=== PATIENT | male | born 1965 | race Caucasian/White ===

== ENCOUNTER 2017-09-20 09:22 | Emergency (ER) | payer MEDICARE ==
[2016-03-22 11:27] VITALS: Ht 182.9 cm; Wt 65.8 kg
[~2017-09-20] VITALS: Ht 182.9 cm; Wt 65.8 kg
[~2017-09-20 09:22] MED LIST: AMLO-96 PO; ATEN-1 PO; CEP500 PO; CIPR-344 PO; CLIN300C99 PO; FLUT16SP20 NS; GABA-549 PO; HYDR-3083 PO; HYDR-317 PO; HYDR-3250 GT; HYDR-4309 PO; IBU800 PO; KET10 PO; LEVO-85 PO; LOR5 PO; LOR5/325 PO; METR-1 PO; OMEP-125 PO; ONDA4TAB PO; OXYC-865 PO; OXYC-870 PO; PEN250 PO; PER PO; PROM-110 PO; PROM25SU8 PR; RANI-315 PO; SUCR1TAB85 PO; ZOLP-350 PO; [UNRECOGNIZED DRUG - CODE] PO
--- NOTE | 2017-09-20 09:42 | ER Report ---
History and Physical Time Seen By MD: 09:39 Hx. of Stated Complaint: N/V/D, ABDOMINAL PAIN HPI/ROS CHIEF COMPLAINT: Nausea vomiting and abdominal pain HISTORY OF PRESENT ILLNESS: Patient is a 52-year-old male who presents emergency Department with generalized abdominal pain that's been going on for approximately 2 days. He reports a nonbloody nonbilious emesis. I reports a few episodes of watery diarrhea. The abdominal pain is generalized and states this is the worst pain he's ever experienced. Patient is had multiple ED visits in the past for similar presentation usually with a completely negative workup including blood work and CT scans. It is noted the patient is on the narcotic watch list. Patient states he's had chills and subjective fevers. Last meal was chicken rice soup last evening. Patient denies any abdominal surgeries in the past. Patient does have a history of alcohol abuse in the past with pancreatitis. Patient denies any recent alcohol ingestion. REVIEW OF SYSTEMS: Constitutional: Subjective fevers and chills Eyes: No discharge. ENT: No sore throat. Cardiovascular: No chest pain, no palpitations. Respiratory: No cough, no shortness of breath. Gastrointestinal: Diffuse abdominal pain associated with nausea vomiting and diarrhea Genitourinary: No hematuria. Musculoskeletal: No back pain. Skin: No rashes. Neurological: No headache. Allergies: Coded Allergies: ketorolac (Verified Allergy, Mild, NAUSEA/VOMITING, 09/20/17) gabapentin (Verified Allergy, Unknown, 09/20/17) naproxen (Verified Allergy, Unknown, 09/20/17) meperidine (Verified Adverse Reaction, Mild, VOMITING, 09/20/17) Home Meds Active Scripts Promethazine HCl (Phenergan) 25 Mg Supp.rect, 1 SUPP.RECT MA Q6H for Nausea, # 20 SUPP.RECT 0 Refills Prov:LIONEL PARISH MD 09/20/17 Dicyclomine Hcl (DICYCLOMINE HCL) 20 Mg Tablet, 20 MG PO QID for abdominal cramping, #20 TAB 0 Refills Prov:LIONEL PARISH MD 09/20/17 Discontinued Scripts Promethazine HCl (Phenergan) 25 Mg Supp.rect, 25 MG MA Q6H Y for NAUSEA/VOMITING , #12 SUPP.RECT Prov:LATA VAZQUEZ [employer]ESSIONAL[employer] 06/27/17 Hydrocodone Bit/Acetaminophen (NORCO 5-325 TABLET) 1 Each Tablet, 1 EACH PO 2- 4XD, #10 TAB Prov:BUD PRETTY MD 10/18/16 Ondansetron (ZOFRAN ODT) 4 Mg Tab.rapdis, 4 MG PO Q6H Y for NAUSEA, #20 TAB TAKE 1 TABLET BY MOUTH EVERY 12 HOURS Prov:BUD PRETTY MD 10/18/16 Past Medical/Surgical History Past Medical/Surgical History Patient has a past medical and surgical history of brain tumor, grand mal seizures, hypertension, COPD, pancreatitis, fractures, back pain, fibromyalgia, 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 Patient has had multiple ED visits for similar complaints of generalized abdominal pain along with nausea and vomiting and multiple CT scans which are either normal or showed only mild colitis. Hx Smoking: Yes (1/2ppd) Smoking Status: Current: Every Day Smoker Exposure to Second Hand Smoke?: No Hx Substance Use Disorder: Yes (POT) Hx Alcohol Use: No (quit 5 yrs ago) Constitutional Vital Sign - Last 24 Hours 09/20/17 09/20/17 09/20/17 09/20/17 09:27 09:27 09:30 09:52 Temp 98.3 Pulse 53 66 Resp 18 B/P (MAP) 185/123 (143) 185/123 181/114 (136) Pulse Ox 97 99 O2 Delivery Room Air 09/20/17 09/20/17 09/20/17 09/20/17 10:00 10:22 10:30 10:52 Pulse 55 59 B/P (MAP) 167/104 (125) 194/125 (148) Pulse Ox 99 93 09/20/17 09/20/17 09/20/17 09/20/17 11:00 11:30 12:00 12:18 Pulse 66 69 64 B/P (MAP) 192/130 (150) 178/117 (137) 184/121 (142) 194/168 (177) Pulse Ox 92 91 92 O2 Delivery Room Air Physical Exam General Appearance: [The patient is alert, has no immediate need for airway protection and no signs of toxicity.] [ ] [Eyes:] [Pupils equal and round no pallor or injection.] [ENT, Mouth:] [Mucous membranes are moist.] Respiratory: [There are no retractions, lungs are clear to auscultation.] Cardiovascular: [Regular rate and rhythm.] [ ] Gastrointestinal: [Abdomen is soft and non tender, no masses, bowel sounds normal.] [Neurological:] [ ] [Skin:] [Warm and dry, no rashes.] [Musculoskeletal:] [Neck is supple non tender.] [Extremities are nontender, nonswollen and have full range of motion.] [ ] [DIFFERENTIAL DIAGNOSIS: After history and physical exam differential diagnosis was considered for] [ ] Medical Decision Making Data Points Result Diagram: 09/20/17 1005 09/20/17 1005 Laboratory Hematology Test 09/20/17 10:05 09/20/17 10:26 Red Blood Count 5.34 M/uL (4.00-5.60) Mean Corpuscular Volume 90.9 fL (80.0-96.0) Mean Corpuscular Hemoglobin 31.3 pg (26.0-33.0) Mean Corpuscular Hemoglobin Concent 34.5 g/dL (32.0-36.0) Red Cell Distribution Width 13.5 % (11.5-14.5) Mean Platelet Volume 9.2 fL (7.2-11.1) Neutrophils (%) (Auto) 81.8 % (39.4-72.5) Lymphocytes (%) (Auto) 13.8 % (17.6-49.6) Monocytes (%) (Auto) 3.9 % (4.1-12.4) Eosinophils (%) (Auto) 0.0 % (0.4-6.7) Basophils (%) (Auto) 0.5 % (0.3-1.4) Nucleated RBC Relative Count (auto) 0.0 /100WBC Neutrophils # (Auto) 8.3 K/uL (2.0-7.4) Lymphocytes # (Auto) 1.4 K/uL (1.3-3.6) Monocytes # (Auto) 0.4 K/uL (0.3-1.0) Eosinophils # (Auto) 0.0 K/uL (0.0-0.5) Basophils # (Auto) 0.1 K/uL (0.0-0.1) Nucleated RBC Absolute Count (auto) 0.00 K/uL Sodium Level 139 mmol/L (137-145) Potassium Level 3.5 mmol/L (3.5-5.0) Chloride Level 105 mmol/L (98-107) Carbon Dioxide Level 23 mmol/L (22-30) Blood Urea Nitrogen 8 mg/dl (9-21) Creatinine 0.60 mg/dl (0.66-1.25) Glomerular Filtration Rate Calc > 60.0 Random Glucose 128 mg/dl (75-110) Calcium Level 9.6 mg/dl (8.4-10.2) Total Bilirubin 0.8 mg/dl (0.2-1.3) Aspartate Amino Transf (AST/SGOT) 20 U/L (0-35) Alanine Aminotransferase (ALT/SGPT) 23 U/L (0-56) Alkaline Phosphatase 107 U/L (0-126) Total Protein 7.8 gm/dl (6.3-8.2) Albumin 4.5 g/dl (3.5-5.0) Amylase Level 56 U/L (0-110) Lipase 20 U/L (23-300) Helicobacter pylori IgG Antibody Negative (NEGATIVE) Urine Color Yellow Urine Clarity Clear Urine pH 8.0 pH (4.8-9.5) Urine Specific [place] 1.018 Urine Protein 30 mg/dL (NEGATIVE) Urine Glucose (UA) Negative mg/dL (NEGATIVE) Urine Ketones 20 mg/dL (NEGATIVE) Urine Blood Negative (NEGATIVE) Urine Nitrite Negative (NEGATIVE) Urine Bilirubin Negative (NEGATIVE) Urine Urobilinogen Negative mg/dL (0.2-1.9) Urine Leukocyte Esterase Negative (NEGATIVE) Urine RBC None /HPF (0-2/HPF) Urine WBC 1 /HPF (0-5/HPF) Urine Squamous Epithelial Cells None /LPF (</=FEW) Urine Bacteria Negative /HPF (NONE-FEW) Urine Mucus Few /HPF (NONE-FEW) Chemistry Test 09/20/17 10:05 09/20/17 10:26 White Blood Count 10.2 k/uL (4.5-11.0) Red Blood Count 5.34 M/uL (4.00-5.60) Hemoglobin 16.7 g/dL (14.0-18.0) Hematocrit 48.6 % (42.0-52.0) Mean Corpuscular Volume 90.9 fL (80.0-96.0) Mean Corpuscular Hemoglobin 31.3 pg (26.0-33.0) Mean Corpuscular Hemoglobin Concent 34.5 g/dL (32.0-36.0) Red Cell Distribution Width 13.5 % (11.5-14.5) Platelet Count 277 K/uL (150-450) Mean Platelet Volume 9.2 fL (7.2-11.1) Neutrophils (%) (Auto) 81.8 % (39.4-72.5) Lymphocytes (%) (Auto) 13.8 % (17.6-49.6) Monocytes (%) (Auto) 3.9 % (4.1-12.4) Eosinophils (%) (Auto) 0.0 % (0.4-6.7) Basophils (%) (Auto) 0.5 % (0.3-1.4) Nucleated RBC Relative Count (auto) 0.0 /100WBC Neutrophils # (Auto) 8.3 K/uL (2.0-7.4) Lymphocytes # (Auto) 1.4 K/uL (1.3-3.6) Monocytes # (Auto) 0.4 K/uL (0.3-1.0) Eosinophils # (Auto) 0.0 K/uL (0.0-0.5) Basophils # (Auto) 0.1 K/uL (0.0-0.1) Nucleated RBC Absolute Count (auto) 0.00 K/uL Glomerular Filtration Rate Calc > 60.0 Calcium Level 9.6 mg/dl (8.4-10.2) Total Bilirubin 0.8 mg/dl (0.2-1.3) Aspartate Amino Transf (AST/SGOT) 20 U/L (0-35) Alanine Aminotransferase (ALT/SGPT) 23 U/L (0-56) Alkaline Phosphatase 107 U/L (0-126) Total Protein 7.8 gm/dl (6.3-8.2) Albumin 4.5 g/dl (3.5-5.0) Amylase Level 56 U/L (0-110) Lipase 20 U/L (23-300) Helicobacter pylori IgG Antibody Negative (NEGATIVE) Urine Color Yellow Urine Clarity Clear Urine pH 8.0 pH (4.8-9.5) Urine Specific [place] 1.018 Urine Protein 30 mg/dL (NEGATIVE) Urine Glucose (UA) Negative mg/dL (NEGATIVE) Urine Ketones 20 mg/dL (NEGATIVE) Urine Blood Negative (NEGATIVE) Urine Nitrite Negative (NEGATIVE) Urine Bilirubin Negative (NEGATIVE) Urine Urobilinogen Negative mg/dL (0.2-1.9) Urine Leukocyte Esterase Negative (NEGATIVE) Urine RBC None /HPF (0-2/HPF) Urine WBC 1 /HPF (0-5/HPF) Urine Squamous Epithelial Cells None /LPF (</=FEW) Urine Bacteria Negative /HPF (NONE-FEW) Urine Mucus Few /HPF (NONE-FEW) Urinalysis Test 09/20/17 10:26 Urine Color Yellow Urine Clarity Clear Urine pH 8.0 pH (4.8-9.5) Urine Specific [place] 1.018 Urine Protein 30 mg/dL (NEGATIVE) Urine Glucose (UA) Negative mg/dL (NEGATIVE) Urine Ketones 20 mg/dL (NEGATIVE) Urine Blood Negative (NEGATIVE) Urine Nitrite Negative (NEGATIVE) Urine Bilirubin Negative (NEGATIVE) Urine Urobilinogen Negative mg/dL (0.2-1.9) Urine Leukocyte Esterase Negative (NEGATIVE) Urine RBC None /HPF (0-2/HPF) Urine WBC 1 /HPF (0-5/HPF) Urine Squamous Epithelial Cells None /LPF (</=FEW) Urine Bacteria Negative /HPF (NONE-FEW) Urine Mucus Few /HPF (NONE-FEW) EKG/Imaging Imaging V: [id number] EXAM DATE: ORDERING PHYSICIAN: LIONEL PARISH TECHNOLOGIST: Location: [facility] - [place], [place] Patient: Edvin Soliman : 1965 Visit/Account:[id number] Date of Sevice: 09/20/2017 EXAMINATION: CT Abdomen and Pelvis With Contrast 09/20/2017 9:55 AM HISTORY: pain. Vomiting. Diarrhea. TECHNIQUE: Spiral scan was through the abdomen and pelvis during injection of nonionic iodinated intravenous contrast. Contrast: 75 mL of IV Isovue 370. One of the following dose optimization techniques was utilized in the performance of this exam: Automated exposure control; adjustment of the mA and/ or kV according to the patient's size; or use of an iterative reconstruction technique. Specific details can be referenced in the facility's radiology CT exam operational policy. COMPARISON STUDIES: 07/08/2016. FINDINGS: Liver / biliary: Periportal edema. Minimal fluid adjacent to the gallbladder although the gallbladder is not distended. No visible cholelithiasis. Pancreas: negative Spleen: negative Adrenal glands: negative Kidneys / retroperitoneum: negative Pelvic structures: negative Bowel / peritoneum / mesenteries: Probably thickened appearance of the ascending transverse and descending colonic wall. Mild free fluid in the pelvis. Normal appendix. Vessels: Mild atherosclerosis. Musculoskeletal / Body wall: Subtle haziness or edema of abdominal wall fat. Lymph node assessment: negative Lower chest: Trace pericardial fluid. IMPRESSION: 1. Mildly thickened appearance of the colon suggesting a nonspecific colitis pattern. 2. Periportal edema, small amount of free fluid in the abdomen, and haziness of the abdominal wall fat and trace pericardial fluid. The pattern is frequently seen with third spacing simply secondary to fluid administration in the ER. Report Dictated By: Ck Sousa MD at 09/20/2017 11:37 AM Report E-Signed By: Ck Sousa MD at 09/20/2017 11:51 AM WSN:[facility] ED Course/Re-evaluation Clinical Indication for ER IV: Hydration, IV Access ED Course 09/20/2017 10:02:56 am patient with 2-3 days of nausea vomiting abdominal pain. Patient does have a history of prior pancreatitis. Patient is also had multiple workups for abdominal pain without significant findings. Patient states he has not yet seen a surgeon or GI doctor for a colonoscopy. Plan at this time will be medical workup including abdominal CT specifically looking for pancreatitis. We'll also administer Zofran for nausea IV fluids and will give iv dilaudid, 1 mg mixed in 250 cc NS and run over 1 hour Re-evaluation 09/20/2017 11:37:37 am Patient feeling better after 1 mg of IV Dilaudid still reporting some nausea despite for Zofran. We'll give 25 mg of Phenergan IV. Decision to Disposition Date: Sep 20, 2017 Decision to Disposition Time: 12:11 Depart Departure Latest Vital Signs Vital Signs Date Time Temp Pulse Resp B/P (MAP) Pulse Ox O2 Delivery O2 Flow Rate FiO2 09/20/17 12:18 64 194/168 (177) 92 Room Air 09/20/17 09:27 98.3 18 Impression: Primary Impression: Colitis Condition: Improved Disposition: HOME OR SELF-CARE Referrals: TREE WISEMAN MD Call for an appointment to evaluate possible causes of recurrent abdominal pain. New Scripts Promethazine HCl (Phenergan) 25 Mg Supp.rect 1 SUPP.RECT MA Q6H for Nausea, #20 SUPP.RECT 0 Refills Prov: LIONEL PARISH MD 09/20/17 Dicyclomine Hcl (DICYCLOMINE HCL) 20 Mg Tablet 20 MG PO QID for abdominal cramping, #20 TAB 0 Refills Prov: LIONEL PARISH MD 09/20/17 Patient Instructions: Colitis (ED) Additional Instructions: Recommend follow-up with general surgery for colonoscopy to further investigate cause of recurrent abdominal pain. LIONEL PARISH MD Sep 20, 2017 09:42
[2017-09-20] MEDS ORDERED: LR(*) 1000 ML BAG 1,000 ML IV ONE (09:50)
[2017-09-20] MEDS ORDERED: ONDANSETRON 4 MG/2 ML VIAL IVP ONE (09:50)
[2017-09-20] MEDS ORDERED: HYDROmorphone(ER ONLY) 1 MG/ML IVP ONE (09:55)
[2017-09-20] MEDS ORDERED: IOPAMIDOL 76% 75 ML INFUS BTL 75 ML ONE (10:10)
[2017-09-20] MEDS ORDERED: NS(*) 0.9% 250 ML BAG 250 ML ONE (10:10)
[2017-09-20] MEDS ORDERED: NS 0.9% 20 ML SDV 60 ML ONE (10:11)
[2017-09-20 10:20] LABS: PLATELET COUNT, AUTOMATED 277 K/uL (150-450)
[2017-09-20] MEDS ORDERED: PROMETHAZINE 25 MG/ML 1 ML AMP IVP ONE (11:40)
--- NOTE | 2017-09-20 11:56 | RADIOLOGY IMAGING REPORT ---
FACILITY: [facility] PATIENT NAME: Edvin Soliman : 1965 MR: [id number] V: [id number] EXAM DATE: ORDERING PHYSICIAN: LIONEL PARISH TECHNOLOGIST: Location: [facility] Patient: Edvin Soliman : 1965 Visit/Account:[id number] Date of Sevice: 09/20/2017 EXAMINATION: CT Abdomen and Pelvis With Contrast 09/20/2017 9:55 AM HISTORY: pain. Vomiting. Diarrhea. TECHNIQUE: Spiral scan was through the abdomen and pelvis during injection of nonionic iodinated in travenous contrast. Contrast: 75 mL of IV Isovue 370. One of the following dose optimization techniques was utilized in the performance of this exam: Autom ated exposure control; adjustment of the mA and/or kV according to the patient's size; or use of an i terative reconstruction technique. Specific details can be referenced in the facility's radiology C T exam operational policy. COMPARISON STUDIES: 07/08/2016. FINDINGS: Liver / biliary: Periportal edema. Minimal fluid adjacent to the gallbladder although the gallbladde r is not distended. No visible cholelithiasis. Pancreas: negative Spleen: negative Adrenal glands: negative Kidneys / retroperitoneum: negative Pelvic structures: negative Bowel / peritoneum / mesenteries: Probably thickened appearance of the ascending transverse and desce nding colonic wall. Mild free fluid in the pelvis. Normal appendix. Vessels: Mild atherosclerosis. Musculoskeletal / Body wall: Subtle haziness or edema of abdominal wall fat. Lymph node assessment: negative Lower chest: Trace pericardial fluid. IMPRESSION: 1. Mildly thickened appearance of the colon suggesting a nonspecific colitis pattern. 2. Periportal edema, small amount of free fluid in the abdomen, and haziness of the abdominal wall f at and trace pericardial fluid. The pattern is frequently seen with third spacing simply secondary t o fluid administration in the ER. Report Dictated By: Ck Sousa MD at 09/20/2017 11:37 AM Report E-Signed By: Ck Sousa MD at 09/20/2017 11:51 AM WSN:[facility]
[2017-09-20] MEDS ORDERED: DICY20TA70 PO (12:14)
[2017-09-20] MEDS ORDERED: PROM25SU8 PR (12:14)
[2017-09-20 12:18] VITALS: BP 194/168
== END 2017-09-20 12:20 | disposition home or self-care (01) ==
LOC: ER 09:22
DX: K52.9 Noninfective gastroenteritis and colitis, unspecified (principal)
CPT/HCPCS: 74177; 81001; 82150; 83690; 85025; 86677; 96361; 96374; 96375; 99284; J1170; J2405; J2550; J7050; J7120; Q9967; 82040; 82247; 82310; 82374; 82435; 82565; 82947; 84075; 84132; 84155; 84295; 84450; 84460; 84520

== ENCOUNTER 2017-10-21 08:59 | Emergency (ER) | payer MEDICARE ==
[2016-03-22 11:27] VITALS: Wt 59.0 kg
[~2017-10-21 08:59] MED LIST changes: +DICY20TA70 PO
[2017-10-21 09:06] VITALS: BP 178/126
--- NOTE | 2017-10-21 09:07 | ER Report ---
History and Physical Time Seen By MD: 09:07 HPI/ROS CHIEF COMPLAINT: Abdominal pain HISTORY OF PRESENT ILLNESS: Patient is a 52-year-old male who returns to the emergency Department with generalized abdominal pain that's been going on for approximately 2-3 days. He reports a nonbloody nonbilious emesis. He states that he has also had a few episodes of of watery diarrhea. The abdominal pain is generalized, crampy and severe patient is had multiple ED visits in the past for similar presentation usually with a completely negative workup including blood work and CT scans. It is noted the patient is on the narcotic watch list. Patient states he's had chills and subjective fevers. Patient denies any abdominal surgeries in the past. Patient does have a history of alcohol abuse in the past with pancreatitis. Patient denies any recent alcohol ingestion. REVIEW OF SYSTEMS: Constitutional: No fever, no chills. Eyes: No discharge. ENT: No sore throat. Cardiovascular: No chest pain, no palpitations. Respiratory: No cough, no shortness of breath. Gastrointestinal: Crampy abdominal pain associated with nausea vomiting and diarrhea Genitourinary: No hematuria. Musculoskeletal: No back pain. Skin: No rashes. Neurological: No headache. Allergies: Coded Allergies: ketorolac (Verified Allergy, Mild, NAUSEA/VOMITING, 10/21/17) gabapentin (Verified Allergy, Unknown, 10/21/17) naproxen (Verified Allergy, Unknown, 10/21/17) meperidine (Verified Adverse Reaction, Mild, VOMITING, 10/21/17) Home Meds Active Scripts Dicyclomine Hcl (DICYCLOMINE HCL) 20 Mg Tablet, 20 MG PO QID, #60 TAB 0 Refills Prov:LIONEL PARISH MD 10/21/17 Metoclopramide Hcl (REGLAN) 10 Mg Tablet, 10 MG PO Q6H, #60 TAB 0 Refills Prov:LIONEL PARISH MD 10/21/17 Discontinued Scripts Promethazine HCl (Phenergan) 25 Mg Supp.rect, 1 SUPP.RECT AR Q6H for Nausea, # 20 SUPP.RECT 0 Refills Prov:LIONEL PARISH MD 09/20/17 Dicyclomine Hcl (DICYCLOMINE HCL) 20 Mg Tablet, 20 MG PO QID for abdominal cramping, #20 TAB 0 Refills Prov:LIONEL PARISH MD 09/20/17 Past Medical/Surgical History Patient has a past medical and surgical history of brain tumor, grand mal seizures, hypertension, COPD, pancreatitis, fractures, back pain, fibromyalgia, 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 Patient has had multiple ED visits for similar complaints of generalized abdominal pain along with nausea and vomiting and multiple CT scans which are either normal or showed only mild colitis. Hx Smoking: Yes (1/2ppd) Smoking Status: Current: Every Day Smoker Exposure to Second Hand Smoke?: No Hx Substance Use Disorder: Yes (POT) Hx Alcohol Use: No (quit 5 yrs ago) Constitutional Vital Sign - Last 24 Hours 10/21/17 10/21/17 09:06 12:51 Temp 99.2 Pulse 66 75 Resp 18 18 B/P (MAP) 178/126 Pulse Ox 97 95 O2 Delivery Room Air Intake and Output 10/21/17 10/21/17 10/22/17 15:00 23:00 07:00 Intake Total 1050 ml Balance 1050 ml Physical Exam General Appearance: The patient is alert, has no immediate need for airway protection and no signs of toxicity. Patient pacing in the room appears uncomfortable Eyes: Pupils equal and round no pallor or injection. Sclera anicteric ENT, Mouth: Mucous membranes are moist. Respiratory: There are no retractions, lungs are clear to auscultation. Cardiovascular: Regular rate and rhythm. [ ] Gastrointestinal: Abdomen is soft and diffusely tender without guarding or rebound tenderness. Increased bowel sounds Neurological: Awake alert appears anxious Skin: Warm and dry, no rashes. Musculoskeletal: Neck is supple non tender. Extremities are nontender, nonswollen and have full range of motion. Medical Decision Making Data Points Result Diagram: 10/21/1752 10/21/17 0952 Laboratory Hematology Test 10/21/17 09:06 10/21/17 09:52 Urine Color Yellow Urine Clarity Slightly-cloudy Urine pH 8.0 pH (4.8-9.5) Urine Specific [place] 1.018 Urine Protein Negative mg/dL (NEGATIVE) Urine Glucose (UA) Negative mg/dL (NEGATIVE) Urine Ketones Negative mg/dL (NEGATIVE) Urine Blood Negative (NEGATIVE) Urine Nitrite Negative (NEGATIVE) Urine Bilirubin Negative (NEGATIVE) Urine Urobilinogen Negative mg/dL (0.2-1.9) Urine Leukocyte Esterase Negative (NEGATIVE) Urine RBC <1 /HPF (0-2/HPF) Urine WBC 1 /HPF (0-5/HPF) Urine Squamous Epithelial Cells None /LPF (</=FEW) Urine Transitional Epithelial Cells Few /LPF (NONE-FEW) Urine Bacteria Negative /HPF (NONE-FEW) Urine Mucus Few /HPF (NONE-FEW) Urine Opiates Screen Negative Urine Barbiturates Screen Negative Ur Tricyclic Antidepressants Screen Negative Urine Phencyclidine Screen Negative Urine Amphetamines Screen Negative Urine Benzodiazepines Screen Negative Urine Cocaine Screen Negative Urine Cannabinoids Screen Positive Red Blood Count 5.44 M/uL (4.00-5.60) Mean Corpuscular Volume 90.3 fL (80.0-96.0) Mean Corpuscular Hemoglobin 31.7 pg (26.0-33.0) Mean Corpuscular Hemoglobin Concent 35.1 g/dL (32.0-36.0) Red Cell Distribution Width 13.9 % (11.5-14.5) Mean Platelet Volume 9.1 fL (7.2-11.1) Neutrophils (%) (Auto) 76.4 % (39.4-72.5) Lymphocytes (%) (Auto) 18.4 % (17.6-49.6) Monocytes (%) (Auto) 4.4 % (4.1-12.4) Eosinophils (%) (Auto) 0.0 % (0.4-6.7) Basophils (%) (Auto) 0.8 % (0.3-1.4) Nucleated RBC Relative Count (auto) 0.0 /100WBC Neutrophils # (Auto) 7.8 K/uL (2.0-7.4) Lymphocytes # (Auto) 1.9 K/uL (1.3-3.6) Monocytes # (Auto) 0.4 K/uL (0.3-1.0) Eosinophils # (Auto) 0.0 K/uL (0.0-0.5) Basophils # (Auto) 0.1 K/uL (0.0-0.1) Nucleated RBC Absolute Count (auto) 0.00 K/uL Sodium Level 143 mmol/L (137-145) Potassium Level 3.8 mmol/L (3.5-5.0) Chloride Level 102 mmol/L (98-107) Carbon Dioxide Level 27 mmol/L (22-30) Blood Urea Nitrogen 13 mg/dl (9-21) Creatinine 0.70 mg/dl (0.66-1.25) Glomerular Filtration Rate Calc > 60.0 Random Glucose 120 mg/dl (75-110) Calcium Level 9.8 mg/dl (8.4-10.2) Total Bilirubin 0.5 mg/dl (0.2-1.3) Aspartate Amino Transf (AST/SGOT) 20 U/L (0-35) Alanine Aminotransferase (ALT/SGPT) 31 U/L (0-56) Alkaline Phosphatase 99 U/L (0-126) Total Protein 7.8 gm/dl (6.3-8.2) Albumin 4.6 g/dl (3.5-5.0) Lipase 32 U/L (23-300) Serum Alcohol < 10 mg/dl Chemistry Test 10/21/17 09:06 10/21/17 09:52 Urine Color Yellow Urine Clarity Slightly-cloudy Urine pH 8.0 pH (4.8-9.5) Urine Specific [place] 1.018 Urine Protein Negative mg/dL (NEGATIVE) Urine Glucose (UA) Negative mg/dL (NEGATIVE) Urine Ketones Negative mg/dL (NEGATIVE) Urine Blood Negative (NEGATIVE) Urine Nitrite Negative (NEGATIVE) Urine Bilirubin Negative (NEGATIVE) Urine Urobilinogen Negative mg/dL (0.2-1.9) Urine Leukocyte Esterase Negative (NEGATIVE) Urine RBC <1 /HPF (0-2/HPF) Urine WBC 1 /HPF (0-5/HPF) Urine Squamous Epithelial Cells None /LPF (</=FEW) Urine Transitional Epithelial Cells Few /LPF (NONE-FEW) Urine Bacteria Negative /HPF (NONE-FEW) Urine Mucus Few /HPF (NONE-FEW) Urine Opiates Screen Negative Urine Barbiturates Screen Negative Ur Tricyclic Antidepressants Screen Negative Urine Phencyclidine Screen Negative Urine Amphetamines Screen Negative Urine Benzodiazepines Screen Negative Urine Cocaine Screen Negative Urine Cannabinoids Screen Positive White Blood Count 10.2 k/uL (4.5-11.0) Red Blood Count 5.44 M/uL (4.00-5.60) Hemoglobin 17.2 g/dL (14.0-18.0) Hematocrit 49.1 % (42.0-52.0) Mean Corpuscular Volume 90.3 fL (80.0-96.0) Mean Corpuscular Hemoglobin 31.7 pg (26.0-33.0) Mean Corpuscular Hemoglobin Concent 35.1 g/dL (32.0-36.0) Red Cell Distribution Width 13.9 % (11.5-14.5) Platelet Count 241 K/uL (150-450) Mean Platelet Volume 9.1 fL (7.2-11.1) Neutrophils (%) (Auto) 76.4 % (39.4-72.5) Lymphocytes (%) (Auto) 18.4 % (17.6-49.6) Monocytes (%) (Auto) 4.4 % (4.1-12.4) Eosinophils (%) (Auto) 0.0 % (0.4-6.7) Basophils (%) (Auto) 0.8 % (0.3-1.4) Nucleated RBC Relative Count (auto) 0.0 /100WBC Neutrophils # (Auto) 7.8 K/uL (2.0-7.4) Lymphocytes # (Auto) 1.9 K/uL (1.3-3.6) Monocytes # (Auto) 0.4 K/uL (0.3-1.0) Eosinophils # (Auto) 0.0 K/uL (0.0-0.5) Basophils # (Auto) 0.1 K/uL (0.0-0.1) Nucleated RBC Absolute Count (auto) 0.00 K/uL Glomerular Filtration Rate Calc > 60.0 Calcium Level 9.8 mg/dl (8.4-10.2) Total Bilirubin 0.5 mg/dl (0.2-1.3) Aspartate Amino Transf (AST/SGOT) 20 U/L (0-35) Alanine Aminotransferase (ALT/SGPT) 31 U/L (0-56) Alkaline Phosphatase 99 U/L (0-126) Total Protein 7.8 gm/dl (6.3-8.2) Albumin 4.6 g/dl (3.5-5.0) Lipase 32 U/L (23-300) Serum Alcohol < 10 mg/dl Toxicology Test 10/21/17 09:06 10/21/17 09:52 Urine Opiates Screen Negative Urine Barbiturates Screen Negative Ur Tricyclic Antidepressants Screen Negative Urine Phencyclidine Screen Negative Urine Amphetamines Screen Negative Urine Benzodiazepines Screen Negative Urine Cocaine Screen Negative Urine Cannabinoids Screen Positive Serum Alcohol < 10 mg/dl Urinalysis Test 10/21/17 09:06 Urine Color Yellow Urine Clarity Slightly-cloudy Urine pH 8.0 pH (4.8-9.5) Urine Specific [place] 1.018 Urine Protein Negative mg/dL (NEGATIVE) Urine Glucose (UA) Negative mg/dL (NEGATIVE) Urine Ketones Negative mg/dL (NEGATIVE) Urine Blood Negative (NEGATIVE) Urine Nitrite Negative (NEGATIVE) Urine Bilirubin Negative (NEGATIVE) Urine Urobilinogen Negative mg/dL (0.2-1.9) Urine Leukocyte Esterase Negative (NEGATIVE) Urine RBC <1 /HPF (0-2/HPF) Urine WBC 1 /HPF (0-5/HPF) Urine Squamous Epithelial Cells None /LPF (</=FEW) Urine Transitional Epithelial Cells Few /LPF (NONE-FEW) Urine Bacteria Negative /HPF (NONE-FEW) Urine Mucus Few /HPF (NONE-FEW) EKG/Imaging Imaging FACILITY: [facility] [place] PATIENT NAME: Edvin Soliman : 1965 MR: [id number] V: [id number] EXAM DATE: ORDERING PHYSICIAN: LIONEL PARISH TECHNOLOGIST: [place] [facility] [place]vin Sol[place] : 1965 Visit/Account:[id number] Date of Sevice: 10/21/2017 Exam type: ACUTE ABDOMEN SERIES 3 VIEW History: Abdomen pain for three years Comparison: KUB October 18, 2016. Findings: There is a mildly prominent loop of bowel in the left upper quadrant. This appears to contain haustral markings and likely represents colon. A moderate amount of fecal material seen in the rectosigmoid region. The stomach appears mildly distended with fluid. There is no evidence of free intraperitoneal air. No evidence of organomegaly. PA view the chest reveals no evidence of pulmonary consolidation or pleural effusions. Cardiac silhouette is normal in size. IMPRESSION: 1. There is a mildly prominent loop of bowel in the left upper quadrant which appears to represent colon. There is a moderate amount of fecal material in the rectosigmoid region. Stomach is mildly distended with fluid. These changes could represent an ileus is likely obstruction. No evidence of pulmonary consolidation Report Dictated By: Margarita Howard MD at 10/21/2017 10:45 AM Report E-Signed By: Margarita Howard MD at 10/21/2017 10:48 AM WSN:[email or web address] FACILITY: [facility] [place] PATIENT NAME: Edvin Soliman : 1965 MR: [id number] V: [id number] EXAM DATE: ORDERING PHYSICIAN: LIONEL PARISH TECHNOLOGIST: [place] [facility] [place] Edvin Sol[place] : 1965 Visit/Account:[id number] Date of Sevice: 10/21/2017 ABDOMEN/PELVIS WITH CONTRAST HISTORY: pain TECHNIQUE: Following administration of IV contrast contiguous axial images acquired through the abdomen/pelvis. Coronal and sagittal reformatting also performed. One of the following dose optimization techniques was utilized in the performance of this exam: Automated exposure control; adjustment of the mA and/or kV according to the patient's size; or use of an iterative reconstruction technique. Specific details can be referenced in the facility's radiology CT exam operational policy. CONTRAST: 75 mL Isovue-370 COMPARISON: 10/21/2017 CT abdomen/pelvis FINDINGS: Visualized lung bases: Negative. Hepatobiliary: Negative. Previously noted mild periportal edema has resolved. Spleen: Negative. Adrenals: Negative. Pancreas: Negative. Kidneys ureters or bladder: Negative. No evidence of renal stones or inflammation. Genitalia: Negative. GI: There is a prominent amount of fecal material seen in the rectosigmoid colon. Colon is otherwise unremarkable. The appendix is not well delineated. No definite inflammation seen in the region of the appendix. Small bowel unremarkable. Vessels/spaces/nodes: There is prominent calcific plaque and mural thrombus seen in the left common iliac artery without evidence of high-grade stenosis. This is best appreciated coronal images 47-50. Moderate calcific plaque is seen elsewhere in the infrarenal abdominal aorta and iliac vessels. Previously seen small amount of free fluid in the pelvis has resolved. Bones/soft tissues: A small concavity seen in the superior endplate of T11 is consistent with a Schmorl's node and unchanged. No concerning bone lesions. Additional findings: None pertinent. IMPRESSION: Prominent fecal retention in the rectosigmoid colon. Correlate with bowel habits. Atherosclerosis as detailed above. Examination otherwise unremarkable. Previous minimal free fluid and periportal edema has resolved. Report Dictated By: Shawn Lara MD at 10/21/2017 12:02 PM Report E-Signed By: Shawn Lara MD at 10/21/2017 12:18 PM WSN:[id number] ED Course/Re-evaluation Clinical Indication for ER IV: Hydration, IV Access ED Course 10/21/2017 9:40:37 am patient with recurrence of abdominal pain and cramping. Ran out of his Bentyl and Phenergan which had been helping. He has not followed up with surgery at this point. Plan will be IV for normal saline we will give Phenergan and Ativan, Bentyl plan will be CBC electrolytes CMP lipase and acute abdominal series. Re-evaluation 10/21/2017 12:50:26 pm patient asking for narcotic medications in multiple times during this visit. Explained to the patient that I believe his obstipation /constipation along with nausea and vomiting are due to slow transit time which is apparent on the findings of the CT scan which shows a large amount of fecal material throughout the intestine. I explained that narcotic medication would be the absolute wrong thing to give him in this case as it would worsen his problem. I further reminded him that he has a treatment plan with the hospital with regard to opiate pain medications. Patient requesting further nausea medicine which we will give prior to discharge. Of note, commercial pest control technician Miladis noted patient trying to self induce vomiting by putting his fingers down his throat. I strongly encouraged the patient to follow up with general surgery as he was instructed on the last visit to the emergency department in August for further workup with colonoscopy or upper GI endoscopy. Decision to Disposition Date: Oct 21, 2017 Decision to Disposition Time: 12:52 Depart Departure Latest Vital Signs Vital Signs Date Time Temp Pulse Resp B/P (MAP) Pulse Ox O2 Delivery O2 Flow Rate FiO2 10/21/17 12:51 75 18 95 10/21/17 09:06 99.2 Room Air Impression: Primary Impression: Constipation Condition: Improved Disposition: HOME OR SELF-CARE New Scripts Dicyclomine Hcl (DICYCLOMINE HCL) 20 Mg Tablet 20 MG PO QID, #60 TAB 0 Refills Prov: LIONEL PARISH MD 10/21/17 Metoclopramide Hcl (REGLAN) 10 Mg Tablet 10 MG PO Q6H, #60 TAB 0 Refills Prov: LIONEL PARISH MD 10/21/17 Patient Instructions: Abdominal Pain (ED), Constipation (ED) Additional Instructions: It is highly recommended that you schedule follow-up appointment with for further evaluation of your persistent, recurrent abdominal pain. You were provided his contact information and should call later today for the next available appointment Problem Qualifiers Primary Impression: Constipation Constipation type: slow transit constipation Qualified Codes: K59.01 - Slow transit constipation LIONEL PARISH MD Oct 21, 2017 09:07
[2017-10-21] MEDS ORDERED: PROMETHAZINE 25 MG/ML 1 ML AMP IVP ONE ×2 (09:35→12:50)
[2017-10-21] MEDS ORDERED: DICYCLOMINE HCL 10 MG CAP PO ONE (09:35)
[2017-10-21] MEDS ORDERED: LORazepam 2 MG/ML VIAL IVP ONE (09:35)
[2017-10-21] MEDS ORDERED: FAMOTIDINE(*) 20MG/50ML PREMIX 50 ML IVPB ONE (09:35)
[2017-10-21] MEDS ORDERED: NS(*) 0.9% 1000 ML BAG 1,000 ML IV ONE (09:35)
[2017-10-21 10:05] LABS: PLATELET COUNT, AUTOMATED 241 K/uL (150-450)
--- NOTE | 2017-10-21 10:53 | RADIOLOGY IMAGING REPORT ---
FACILITY: [facility] [place] PATIENT NAME: Edvin Soliman : 1965 MR: [id number] V: [id number] EXAM DATE: ORDERING PHYSICIAN: LIONEL PARISH TECHNOLOGIST: Location: [facility] [place] Patient: Edvin Soliman : 1965 Visit/Account:[id number] Date of Sevice: 10/21/2017 Exam type: ACUTE ABDOMEN SERIES 3 VIEW History: Abdomen pain for three years Comparison: KUB October 18, 2016. Findings: There is a mildly prominent loop of bowel in the left upper quadrant. This appears to contain haustr al markings and likely represents colon. A moderate amount of fecal material seen in the rectosigmoi d region. The stomach appears mildly distended with fluid. There is no evidence of free intraperito celeste air. No evidence of organomegaly. PA view the chest reveals no evidence of pulmonary consolidation or pleural effusions. Cardiac silho uette is normal in size. IMPRESSION: 1. There is a mildly prominent loop of bowel in the left upper quadrant which appears to represent c olon. There is a moderate amount of fecal material in the rectosigmoid region. Stomach is mildly di stended with fluid. These changes could represent an ileus is likely obstruction. No evidence of pulmonary consolidation Report Dictated By: Margarita Howard MD at 10/21/2017 10:45 AM Report E-Signed By: Margarita Howard MD at 10/21/2017 10:48 AM WSN:[email or web address]
[2017-10-21] MEDS ORDERED: METOCLOPRAMIDE 10 MG/2 ML SDV IVP ONE (11:00)
[2017-10-21] MEDS ORDERED: IOPAMIDOL 76% 75 ML INFUS BTL 75 ML ONE (11:29)
--- NOTE | 2017-10-21 12:23 | RADIOLOGY IMAGING REPORT ---
FACILITY: [facility] - [place] PATIENT NAME: Edvin Soliman : 1965 MR: [id number] V: [id number] EXAM DATE: ORDERING PHYSICIAN: LIONEL PARISH TECHNOLOGIST: [place] [facility] [place] Edvin Sol[place] : 1965 Visit/Account:[id number] Date of Sevice: 10/21/2017 ABDOMEN/PELVIS WITH CONTRAST HISTORY: pain TECHNIQUE: Following administration of IV contrast contiguous axial images acquired through the abdom en/pelvis. Coronal and sagittal reformatting also performed. One of the following dose optimization techniques was utilized in the performance of this exam: Automated exposure control; adjustment of t he mA and/or kV according to the patient's size; or use of an iterative reconstruction technique. S pecific details can be referenced in the facility's radiology CT exam operational policy. CONTRAST: 75 mL Isovue-370 COMPARISON: 10/21/2017 CT abdomen/pelvis FINDINGS: Visualized lung bases: Negative. Hepatobiliary: Negative. Previously noted mild periportal edema has resolved. Spleen: Negative. Adrenals: Negative. Pancreas: Negative. Kidneys ureters or bladder: Negative. No evidence of renal stones or inflammation. Genitalia: Negative. GI: There is a prominent amount of fecal material seen in the rectosigmoid colon. Colon is otherwise unremarkable. The appendix is not well delineated. No definite inflammation seen in the region of th e appendix. Small bowel unremarkable. Vessels/spaces/nodes: There is prominent calcific plaque and mural thrombus seen in the left common iliac artery without evidence of high-grade stenosis. This is best appreciated coronal images 47-50. Moderate calcific plaque is seen elsewhere in the infrarenal abdominal aorta and iliac vessels. Previously seen small amount of free fluid in the pelvis has resolved. Bones/soft tissues: A small concavity seen in the superior endplate of T11 is consistent with a Schm orl's node and unchanged. No concerning bone lesions. Additional findings: None pertinent. IMPRESSION: Prominent fecal retention in the rectosigmoid colon. Correlate with bowel habits. Atherosclerosis as detailed above. Examination otherwise unremarkable. Previous minimal free fluid and periportal edema has resolved. Report Dictated By: Shawn Lara MD at 10/21/2017 12:02 PM Report E-Signed By: Shawn Lara MD at 10/21/2017 12:18 PM WSN:[id number]
[2017-10-21] MEDS ORDERED: METO-734 PO (12:34)
[2017-10-21] MEDS ORDERED: DICY20TA70 PO (12:34)
== END 2017-10-21 13:02 | disposition home or self-care (01) ==
LOC: ER 09:11
DX: K59.01 Slow transit constipation (principal); R50.9 Fever, unspecified
CPT/HCPCS: 74022; 74177; 80305; 81001; 83690; 85025; 96361; 96365; 96375; 96376; 99284; A9270; G0480; J2060; J2550; J2765; J3490; J7030; Q9967; 80320; 82040; 82247; 82310; 82374; 82435; 82565; 82947; 84075; 84132; 84155; 84295; 84450; 84460; 84520

== ENCOUNTER 2017-12-15 06:39 | Emergency (ER) | payer MEDICARE ==
[2016-03-22 11:27] VITALS: Wt 59.0 kg
[2017-12-15] MEDS ORDERED: NS(*) 0.9% 1000 ML BAG 1,000 ML IV ONE (07:07)
[2017-12-15] MEDS ORDERED: METOCLOPRAMIDE 10 MG/2 ML SDV IVP ONE (07:10)
[2017-12-15 07:22] LABS: PLATELET COUNT, AUTOMATED 247 K/uL (150-450)
[2017-12-15] MEDS ORDERED: ONDANSETRON 4 MG/2 ML VIAL IVP ONE (08:15)
[2017-12-15] MEDS ORDERED: NS(*) 0.9% 500 ML BAG 500 ML IV ONE (08:15)
[2017-12-15] MEDS ORDERED: METO-734 PO (08:21)
--- NOTE | 2017-12-15 08:21 | RADIOLOGY IMAGING REPORT ---
FACILITY: [facility] [place] PATIENT NAME: Edvin Soliman : 1965 MR: [id number] V: [id number] EXAM DATE: ORDERING PHYSICIAN: SHAINA ROSARIO TECHNOLOGIST: Location: [facility] Patient: Edvin Soliman : 1965 Visit/Account:[id number] Date of Sevice: 12/15/2017 ACUTE ABDOMEN SERIES 3 VIEW HISTORY: Abdominal pain, nausea and vomiting for one day COMPARISON: Abdominal series from October 21, 2017 FINDINGS: Heart is normal. Lungs are clear. No effusion or pneumothorax. Upright view of the abdomen reveals nonspecific air-fluid level in the stomach. No dilated loops of bowel, pneumatosis or free air. IMPRESSION: 1. Nonobstructive bowel pattern without radiographic evidence of pathology 2. Air-fluid level in a nondilated stomach. The finding could be normal or represent gastritis Report Dictated By: Ray Navarro MD at 12/15/2017 8:15 AM Report E-Signed By: Ray Navarro MD at 12/15/2017 8:17 AM WSN:[id number]
--- NOTE | 2017-12-15 08:25 | ER Report ---
History and Physical Time Seen By MD: 07:00 Hx. of Stated Complaint: ABDOMIMAL PAIN AND VOMITING ALL NIGHT. PATIENT HAS AN EXTENSIVE ER HISTORY FOR THIS PROBLEM HPI/ROS This is a 53-year-old male with chronic abdominal pain, nausea and vomiting. He does not have a primary care physician nor does he have a GI doctor. He presented to the emergency department this morning with his usual episodes of diffuse abdominal pain nausea and vomiting. No fever chills. Also reports some loose bowel movements. He is able to take by mouth. He does not have any antinausea medications at home right now. No chest pain, no fevers, no shortness of breath, no trauma. Remainder of the 14 system rev: Yes Allergies: Coded Allergies: ketorolac (Verified Allergy, Mild, NAUSEA/VOMITING, 10/21/17) gabapentin (Verified Allergy, Unknown, 10/21/17) naproxen (Verified Allergy, Unknown, 10/21/17) meperidine (Verified Adverse Reaction, Mild, VOMITING, 10/21/17) Home Meds Active Scripts Metoclopramide Hcl (REGLAN) 10 Mg Tablet, 10 MG PO 2-3XD for Nausea for 14 Days , #20 TAB Prov:SHAINA ROSARIO MD 12/15/17 Dicyclomine Hcl (DICYCLOMINE HCL) 20 Mg Tablet, 20 MG PO QID, #60 TAB 0 Refills Prov:LIONEL PARISH MD 10/21/17 Metoclopramide Hcl (REGLAN) 10 Mg Tablet, 10 MG PO Q6H, #60 TAB 0 Refills Prov:LIONEL PARISH MD 10/21/17 Reviewed Nurses Notes: Yes Old Medical Records Reviewed: Yes Hx Smoking: Yes (1/2ppd) Smoking Status: Current: Every Day Smoker Exposure to Second Hand Smoke?: No Hx Substance Use Disorder: Yes (POT) Hx Alcohol Use: No (quit 5 yrs ago) Constitutional Vital Sign - Last 24 Hours 12/15/17 12/15/17 12/15/17 12/15/17 06:42 06:43 06:54 07:00 Temp 97.8 Pulse 87 87 Resp 24 B/P (MAP) 141/106 141/106 (118) 144/108 (120) Pulse Ox 98 12/15/17 12/15/17 12/15/17 12/15/17 07:09 07:14 07:30 07:44 Pulse 92 83 B/P (MAP) 154/112 (126) Pulse Ox 97 95 12/15/17 12/15/17 08:14 08:30 Pulse 80 B/P (MAP) 141/107 (118) Pulse Ox 95 Intake and Output 12/15/17 12/15/17 12/16/17 15:00 23:00 07:00 Intake Total 1500 ml Balance 1500 ml Physical Exam General Appearance: The patient is alert, has no immediate need for airway protection and no current signs of toxicity. Eyes: Pupils equal and round no injection. Respiratory: Chest is non tender, lungs are clear to auscultation. Cardiac: regular rate and rhythm Gastrointestinal: Abdomen is soft, not distended with diffuse TTP Extremities have full range of motion and are non tender. Skin: No rashes or lesions. DIFFERENTIAL DIAGNOSIS: After history and physical exam differential diagnosis was considered for abdominal pain including but not limited to appendicitis, cholecystitis, gastritis and urinary tract infection. Medical Decision Making Data Points Result Diagram: 12/15/17 0702 12/15/17 0702 Laboratory Hematology Test 12/15/17 07:02 Red Blood Count 5.50 M/uL (4.00-5.60) Mean Corpuscular Volume 90.7 fL (80.0-96.0) Mean Corpuscular Hemoglobin 31.6 pg (26.0-33.0) Mean Corpuscular Hemoglobin Concent 34.8 g/dL (32.0-36.0) Red Cell Distribution Width 13.9 % (11.5-14.5) Mean Platelet Volume 9.0 fL (7.2-11.1) Neutrophils (%) (Auto) 81.9 % (39.4-72.5) Lymphocytes (%) (Auto) 13.3 % (17.6-49.6) Monocytes (%) (Auto) 3.9 % (4.1-12.4) Eosinophils (%) (Auto) 0.1 % (0.4-6.7) Basophils (%) (Auto) 0.8 % (0.3-1.4) Nucleated RBC Relative Count (auto) 0.0 /100WBC Neutrophils # (Auto) 10.9 K/uL (2.0-7.4) Lymphocytes # (Auto) 1.8 K/uL (1.3-3.6) Monocytes # (Auto) 0.5 K/uL (0.3-1.0) Eosinophils # (Auto) 0.0 K/uL (0.0-0.5) Basophils # (Auto) 0.1 K/uL (0.0-0.1) Nucleated RBC Absolute Count (auto) 0.00 K/uL Sodium Level 142 mmol/L (137-145) Potassium Level 3.9 mmol/L (3.5-5.0) Chloride Level 100 mmol/L (98-107) Carbon Dioxide Level 24 mmol/L (22-30) Blood Urea Nitrogen 14 mg/dl (9-21) Creatinine 0.80 mg/dl (0.66-1.25) Glomerular Filtration Rate Calc > 60.0 Random Glucose 137 mg/dl (75-110) Calcium Level 9.9 mg/dl (8.4-10.2) Total Bilirubin 0.4 mg/dl (0.2-1.3) Aspartate Amino Transf (AST/SGOT) 24 U/L (0-35) Alanine Aminotransferase (ALT/SGPT) 32 U/L (0-56) Alkaline Phosphatase 80 U/L (0-126) Total Protein 8.2 gm/dl (6.3-8.2) Albumin 4.9 g/dl (3.5-5.0) Lipase 23 U/L (23-300) Chemistry Test 12/15/17 07:02 White Blood Count 13.3 k/uL (4.5-11.0) Red Blood Count 5.50 M/uL (4.00-5.60) Hemoglobin 17.4 g/dL (14.0-18.0) Hematocrit 49.8 % (42.0-52.0) Mean Corpuscular Volume 90.7 fL (80.0-96.0) Mean Corpuscular Hemoglobin 31.6 pg (26.0-33.0) Mean Corpuscular Hemoglobin Concent 34.8 g/dL (32.0-36.0) Red Cell Distribution Width 13.9 % (11.5-14.5) Platelet Count 247 K/uL (150-450) Mean Platelet Volume 9.0 fL (7.2-11.1) Neutrophils (%) (Auto) 81.9 % (39.4-72.5) Lymphocytes (%) (Auto) 13.3 % (17.6-49.6) Monocytes (%) (Auto) 3.9 % (4.1-12.4) Eosinophils (%) (Auto) 0.1 % (0.4-6.7) Basophils (%) (Auto) 0.8 % (0.3-1.4) Nucleated RBC Relative Count (auto) 0.0 /100WBC Neutrophils # (Auto) 10.9 K/uL (2.0-7.4) Lymphocytes # (Auto) 1.8 K/uL (1.3-3.6) Monocytes # (Auto) 0.5 K/uL (0.3-1.0) Eosinophils # (Auto) 0.0 K/uL (0.0-0.5) Basophils # (Auto) 0.1 K/uL (0.0-0.1) Nucleated RBC Absolute Count (auto) 0.00 K/uL Glomerular Filtration Rate Calc > 60.0 Calcium Level 9.9 mg/dl (8.4-10.2) Total Bilirubin 0.4 mg/dl (0.2-1.3) Aspartate Amino Transf (AST/SGOT) 24 U/L (0-35) Alanine Aminotransferase (ALT/SGPT) 32 U/L (0-56) Alkaline Phosphatase 80 U/L (0-126) Total Protein 8.2 gm/dl (6.3-8.2) Albumin 4.9 g/dl (3.5-5.0) Lipase 23 U/L (23-300) EKG/Imaging Imaging X-ray: An acute abdominal series was obtained. I viewed the images myself on the PACS system. My interpretation of the images is: no evidence of SBO or free air, air fluid level in stomach. The radiologist interpretation had no clinically significant variation from this interpretation. ED Course/Re-evaluation ED Course This is a 53-year-old male with known chronic abdominal pain and cyclic nausea and vomiting. He currently does not have any antinausea medications at home. He presented to the emergency department this morning stating this is the same exacerbation as his usual exacerbations. He has no focal abdominal tenderness to palpation that would require a CT at this time. An acute abdominal series shows no evidence of a bowel obstruction or bowel perforation. The patient is up and walking around in the emergency department. His nausea and vomiting is controlled with Reglan and Zofran. I spoke with him at length about the need for obtaining a primary care physician. The patient voices understanding and states that he will seek out a primary care physician. I also told him that his primary care physician would be able to refer him to a GI doctor for his chronic diffuse abdominal pain and intermittent cyclic nausea and vomiting. Again he had no chest pain no shortness of breath. I do not think he needs a cardiac or pulmonary workup at this time. He was given 1 L of normal saline Reglan and Zofran, and states that he feels improved. He did ask for morphine for his pain, but I told him that I do not treat chronic pain with narcotics in the emergency department. He voiced understanding of that. Discharged with a friend and will follow up with a primary care physician. Decision to Disposition Date: Dec 15, 2017 Decision to Disposition Time: 08:17 Depart Departure Latest Vital Signs Vital Signs Date Time Temp Pulse Resp B/P (MAP) Pulse Ox O2 Delivery O2 Flow Rate FiO2 12/15/17 08:30 141/107 (118) 12/15/17 08:14 80 95 12/15/17 06:42 97.8 24 Impression: Primary Impression: Nausea & vomiting Condition: Improved Disposition: HOME OR SELF-CARE New Scripts Metoclopramide Hcl (REGLAN) 10 Mg Tablet 10 MG PO 2-3XD for Nausea for 14 Days, #20 TAB Prov: SHAINA ROSARIO MD 12/15/17 Patient Instructions: Acute Nausea and Vomiting (ED) Additional Instructions: Please call one of the local primary care offices, and get yourself a primary care provider who can follow you for your chronic abdominal pain and nausea and vomiting. This provider will also be able to get you referred to a GI doctor. Problem Qualifiers Primary Impression: Nausea & vomiting Vomiting type: cyclical vomiting Vomiting Intractability: non-intractable Qualified Codes: G43.A0 - Cyclical vomiting, not intractable SHAINA ROSARIO MD Dec 15, 2017 08:25
[2017-12-15 08:30] VITALS: BP 141/107
== END 2017-12-15 08:53 | disposition home or self-care (01) ==
LOC: ER 06:42
DX: G43.A0 Cyclical vomiting, in migraine, not intractable (principal)
CPT/HCPCS: 74022; 83690; 85025; 96361; 96374; 96375; 99284; J2405; J2765; J7030; J7040; 82040; 82247; 82310; 82374; 82435; 82565; 82947; 84075; 84132; 84155; 84295; 84450; 84460; 84520

== ENCOUNTER → 2017-12-15 | Outpatient (CLI) | payer MEDICARE ==
[2016-03-22 11:27] VITALS: BMI 19.7
[~2017-12-15] MED LIST changes: +METO-734 PO
== END ==
LOC: AMB 06:27
PROVIDERS: ATTEND Nurse Practitioner
DX: R10.9 Unspecified abdominal pain (principal)
CPT/HCPCS: A0425; A0427

== ENCOUNTER 2018-01-12 13:55 | Emergency (ER) | payer MEDICARE ==
[2016-03-22 11:27] VITALS: Wt 59.0 kg
--- NOTE | 2018-01-12 14:02 | ER Report ---
History and Physical Time Seen By MD: 14:02 HPI/ROS CHIEF COMPLAINT: Abdominal pain HISTORY OF PRESENT ILLNESS: This is a 52-year-old male well-known to the ER who presents with his "usual" abdominal pain. Patient states that he developed his usual abdominal pain last night in addition to this he had a small amount of diarrhea which time he took some Imodium, patient states he he still is having intermittent loose stools but normalizing bowel movements today. No blood noted. This is the typical abdominal pain the patient presents with in addition to the abdominal pain he is having his normal nausea and vomiting. Patient is requesting hydration and nausea medicine. Patient declines an abdominal series. Patient denies chest pain or shortness of breath. No aches or pains. No rashes. REVIEW OF SYSTEMS: Constitutional: No fever, no chills. Eyes: No discharge. ENT: No sore throat. Cardiovascular: No chest pain, no palpitations. Respiratory: No cough, no shortness of breath. Gastrointestinal: As above. Genitourinary: No hematuria. Musculoskeletal: No back pain. Skin: No rashes. Neurological: No headache. Allergies: Coded Allergies: ketorolac (Verified Allergy, Mild, NAUSEA/VOMITING, 01/12/18) gabapentin (Verified Allergy, Unknown, 01/12/18) naproxen (Verified Allergy, Unknown, 01/12/18) meperidine (Verified Adverse Reaction, Mild, VOMITING, 01/12/18) Home Meds Discontinued Scripts Metoclopramide Hcl (REGLAN) 10 Mg Tablet, 10 MG PO 2-3XD for Nausea for 14 Days , #20 TAB Prov:SHAINA ROSARIO MD 12/15/17 Dicyclomine Hcl (DICYCLOMINE HCL) 20 Mg Tablet, 20 MG PO QID, #60 TAB 0 Refills Prov:LIONEL PARISH MD 10/21/17 Metoclopramide Hcl (REGLAN) 10 Mg Tablet, 10 MG PO Q6H, #60 TAB 0 Refills Prov:LIONEL PARISH MD 10/21/17 Past Medical/Surgical History Patient has a past medical and surgical history of a brain tumor, seizures, grand mal seizure, hypertension, COPD, GERD, pancreatitis, fibromyalgia, 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 Chronic abdominal pain. Reviewed Nurses Notes: Yes Hx Smoking: Yes (1/2ppd) Smoking Status: Current: Every Day Smoker Exposure to Second Hand Smoke?: No Hx Substance Use Disorder: Yes (POT) Hx Alcohol Use: No (quit 5 yrs ago) Constitutional Vital Sign - Last 24 Hours 01/12/18 01/12/18 01/12/18 01/12/18 14:00 14:00 14:02 14:30 Temp 98.4 Pulse 62 59 64 Resp 18 B/P (MAP) 184/120 184/120 (141) 154/98 (116) Pulse Ox 98 98 94 O2 Delivery Room Air 01/12/18 15:42 B/P (MAP) 174/109 (130) Intake and Output 01/12/18 01/12/18 01/13/18 15:00 23:00 07:00 Intake Total 1000 ml Balance 1000 ml Physical Exam General Appearance: The patient is alert, has no immediate need for airway protection and no signs of toxicity, wearing sunglasses. Eyes: Pupils equal and round no pallor or injection. ENT, Mouth: Mucous membranes are moist. Respiratory: There are no retractions, lungs are clear to auscultation. Cardiovascular: Regular rate and rhythm. Gastrointestinal: Abdomen is soft and non tender, no masses, bowel sounds normal. Neurological: Alert and oriented 4. Moving all strep is. Following. No focal neurodeficits. Skin: Warm and dry, no rashes. Musculoskeletal: Neck is supple non tender. Extremities are nontender, nonswollen and have full range of motion. DIFFERENTIAL DIAGNOSIS: After history and physical exam differential diagnosis was considered for abdominal pain including but not limited to appendicitis, bowel obstruction, cholecystitis, pancreatitis, gastritis and urinary tract infection. Medical Decision Making Data Points Result Diagram: 01/12/18 1422 01/12/18 1422 Laboratory Hematology Test 01/12/18 14:22 Red Blood Count 5.13 M/uL (4.00-5.60) Mean Corpuscular Volume 91.1 fL (80.0-96.0) Mean Corpuscular Hemoglobin 32.0 pg (26.0-33.0) Mean Corpuscular Hemoglobin Concent 35.1 g/dL (32.0-36.0) Red Cell Distribution Width 14.1 % (11.5-14.5) Mean Platelet Volume 8.8 fL (7.2-11.1) Neutrophils (%) (Auto) 79.5 % (39.4-72.5) Lymphocytes (%) (Auto) 14.7 % (17.6-49.6) Monocytes (%) (Auto) 5.1 % (4.1-12.4) Eosinophils (%) (Auto) 0.2 % (0.4-6.7) Basophils (%) (Auto) 0.5 % (0.3-1.4) Nucleated RBC Relative Count (auto) 0.0 /100WBC Neutrophils # (Auto) 8.4 K/uL (2.0-7.4) Lymphocytes # (Auto) 1.5 K/uL (1.3-3.6) Monocytes # (Auto) 0.5 K/uL (0.3-1.0) Eosinophils # (Auto) 0.0 K/uL (0.0-0.5) Basophils # (Auto) 0.1 K/uL (0.0-0.1) Nucleated RBC Absolute Count (auto) 0.00 K/uL Sodium Level 141 mmol/L (137-145) Potassium Level 3.5 mmol/L (3.5-5.0) Chloride Level 100 mmol/L (98-107) Carbon Dioxide Level 28 mmol/L (22-30) Blood Urea Nitrogen 12 mg/dl (9-21) Creatinine 0.60 mg/dl (0.66-1.25) Glomerular Filtration Rate Calc > 60.0 Random Glucose 129 mg/dl (75-110) Calcium Level 9.8 mg/dl (8.4-10.2) Total Bilirubin 0.5 mg/dl (0.2-1.3) Aspartate Amino Transf (AST/SGOT) 21 U/L (0-35) Alanine Aminotransferase (ALT/SGPT) 26 U/L (0-56) Alkaline Phosphatase 76 U/L (0-126) Total Protein 7.2 gm/dl (6.3-8.2) Albumin 4.3 g/dl (3.5-5.0) Lipase 15 U/L (23-300) Chemistry Test 01/12/18 14:22 White Blood Count 10.5 k/uL (4.5-11.0) Red Blood Count 5.13 M/uL (4.00-5.60) Hemoglobin 16.4 g/dL (14.0-18.0) Hematocrit 46.7 % (42.0-52.0) Mean Corpuscular Volume 91.1 fL (80.0-96.0) Mean Corpuscular Hemoglobin 32.0 pg (26.0-33.0) Mean Corpuscular Hemoglobin Concent 35.1 g/dL (32.0-36.0) Red Cell Distribution Width 14.1 % (11.5-14.5) Platelet Count 249 K/uL (150-450) Mean Platelet Volume 8.8 fL (7.2-11.1) Neutrophils (%) (Auto) 79.5 % (39.4-72.5) Lymphocytes (%) (Auto) 14.7 % (17.6-49.6) Monocytes (%) (Auto) 5.1 % (4.1-12.4) Eosinophils (%) (Auto) 0.2 % (0.4-6.7) Basophils (%) (Auto) 0.5 % (0.3-1.4) Nucleated RBC Relative Count (auto) 0.0 /100WBC Neutrophils # (Auto) 8.4 K/uL (2.0-7.4) Lymphocytes # (Auto) 1.5 K/uL (1.3-3.6) Monocytes # (Auto) 0.5 K/uL (0.3-1.0) Eosinophils # (Auto) 0.0 K/uL (0.0-0.5) Basophils # (Auto) 0.1 K/uL (0.0-0.1) Nucleated RBC Absolute Count (auto) 0.00 K/uL Glomerular Filtration Rate Calc > 60.0 Calcium Level 9.8 mg/dl (8.4-10.2) Total Bilirubin 0.5 mg/dl (0.2-1.3) Aspartate Amino Transf (AST/SGOT) 21 U/L (0-35) Alanine Aminotransferase (ALT/SGPT) 26 U/L (0-56) Alkaline Phosphatase 76 U/L (0-126) Total Protein 7.2 gm/dl (6.3-8.2) Albumin 4.3 g/dl (3.5-5.0) Lipase 15 U/L (23-300) ED Course/Re-evaluation Clinical Indication for ER IV: Hydration, IV Access ED Course The patient was admitted to a room. A history and physical were obtained differential diagnoses were considered. An IV was started. A 1 L normal saline bolus was given. A milligrams of IV Zofran. 10 mg IV Reglan, thousand milligrams by mouth Tylenol. Patient declined imaging studies. Patient states he is feeling better and is ready to go home. I did instruct the patient to follow up with his primary care provider as scheduled next week continue with a liquid diet for the next 24 hours and slowly progress. Agree with his care discharged home. Decision to Disposition Date: January 12, 2018 Decision to Disposition Time: 15:38 Depart Departure Latest Vital Signs Vital Signs Date Time Temp Pulse Resp B/P (MAP) Pulse Ox O2 Delivery O2 Flow Rate FiO2 01/12/18 15:42 174/109 (130) 01/12/18 14:30 64 94 01/12/18 14:00 98.4 18 Room Air Impression: Primary Impression: Nausea & vomiting Condition: Improved Disposition: HOME OR SELF-CARE New Scripts No Active Prescriptions or Reported Meds Patient Instructions: Acute Nausea and Vomiting (ED) Additional Instructions: Drink frequent small amounts of fluid, go slow. Clear liquid diet for the next 24 hours. Keep your follow up appointment for new provider next week. Return to the ED for any other concerns or worsening symptoms. Problem Qualifiers Primary Impression: Nausea & vomiting Vomiting type: unspecified Vomiting Intractability: non-intractable Qualified Codes: R11.2 - Nausea with vomiting, unspecified LATA VAZQUEZ [employer] January 12, 2018 14:02
[2018-01-12] MEDS ORDERED: ONDANSETRON 4 MG/2 ML VIAL IVP ONE (14:10)
[2018-01-12] MEDS ORDERED: NS(*) 0.9% 1000 ML BAG 1,000 ML IV ONE (14:10)
[2018-01-12 14:32] LABS: PLATELET COUNT, AUTOMATED 249 K/uL (150-450)
[2018-01-12] MEDS ORDERED: METOCLOPRAMIDE 10 MG/2 ML SDV IVP ONE (14:50)
[2018-01-12] MEDS ORDERED: ACETAMINOPHEN 500 MG TAB PO ONE (14:50)
[2018-01-12 15:42] VITALS: BP 174/109
== END 2018-01-12 15:43 | disposition home or self-care (01) ==
LOC: ER 14:15
DX: R11.2 Nausea with vomiting, unspecified (principal)
CPT/HCPCS: 83690; 85025; 96361; 96374; 96375; 99284; A9270; J2405; J2765; J7030; 82040; 82247; 82310; 82374; 82435; 82565; 82947; 84075; 84132; 84155; 84295; 84450; 84460; 84520

== ENCOUNTER 2018-03-13 22:31 | Emergency (ER) | payer MEDICARE ==
[2016-03-22 11:27] VITALS: Wt 59.0 kg
[2018-03-13 22:42] VITALS: BP 133/97
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
[2018-03-13] MEDS ORDERED: OXYC-865 PO (23:51)
[2018-03-13] MEDS ORDERED: oxyCODONE/ACETAMIN 5/325MG TH 2 TAB/BOTTLE PO ONE (23:55)
== END 2018-03-14 00:12 | disposition home or self-care (01) ==
LOC: ER 22:45
DX: S00.81XA Abrasion of other part of head, initial encounter (principal); S80.02XA Contusion of left knee, initial encounter; S60.222A Contusion of left hand, initial encounter; S09.90XA Unspecified injury of head, initial encounter; V19.9XXA Pedal cyclist (driver) (passenger) injured in unspecified traffic accident, initial encounter
CPT/HCPCS: 70450; 99284

== ENCOUNTER → 2018-03-15 | Outpatient (CLI) | payer MEDICARE ==
[2016-03-22 11:27] VITALS: BMI 19.7
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
--- NOTE | 2018-03-15 11:42 | RADIOLOGY IMAGING REPORT ---
FACILITY: [facility] PATIENT NAME: Edvin Soliman : 1965 MR: [id number] V: [id number] EXAM DATE: ORDERING PHYSICIAN: CAPRI MUSE TECHNOLOGIST: Location: [facility] Patient: Edvin Soliman : 1965 Visit/Account:[id number] Date of Sevice: 03/15/2018 LUMBAR SPINE 4 VIEWS History: Low back pain. Comparison study: None. Findings: The lumbar spine has normal lordotic curvature. There is no fracture, spondylolisthesis o r spondylolysis. Minimal discogenic degenerative changes throughout the lower lumbar spine are most prominent at L5-S1 were there is loss of disc space height. There are mild facet degenerative changes at L5-S1. The sacroiliac joints are unremarkable. IMPRESSION: 1. No fracture or spondylolisthesis. 2. Minimal discogenic degenerative changes in the lumbar spine most prominent at L5-S1. There are a lso mild facet degenerative changes at L5-S1 bilaterally. Report Dictated By: Aries Pack MD at 03/15/2018 11:36 AM Report E-Signed By: Aries Pack MD at 03/15/2018 11:37 AM WSN:[email or web address]
== END ==
LOC: RAD 10:29
PROVIDERS: ATTEND Nurse Practitioner Family
DX: M51.37 Other intervertebral disc degeneration, lumbosacral region (principal); M25.551 Pain in right hip; R07.89 Other chest pain; M54.89 Other dorsalgia
CPT/HCPCS: 71100; 72120

== ENCOUNTER 2018-04-08 13:33 | Emergency (ER) | payer MEDICARE ==
[2016-03-22 11:27] VITALS: Wt 59.0 kg
--- NOTE | 2018-04-08 13:39 | ER Report ---
History and Physical Time Seen By MD: 13:37 HPI/ROS CHIEF COMPLAINT: Abdominal pain HISTORY OF PRESENT ILLNESS: Patient is a 52-year-old male with past medical history significant for untreated hypertension also history of brain surgery secondary to meningioma. Patient presents with complaint of generalized abdominal pain for the past few days. Review of the electronic medical record shows the patient has been seen multiple times in the emergency department for similar complaints has had blood work and CT scans all of which have returned normal. Patient denies any fevers or chills. He denies any recent travel history or antibiotic use. She states the abdominal pain feels better if he vomits. She denies any other abdominal surgeries. REVIEW OF SYSTEMS: Constitutional: No fever, no chills. Eyes: No discharge. ENT: No sore throat. Cardiovascular: No chest pain, no palpitations. Respiratory: No cough, no shortness of breath. Gastrointestinal: Generalized abdominal pain with vomiting multiple episodes of watery diarrhea without blood or mucus Genitourinary: No hematuria. Musculoskeletal: No back pain. Skin: No rashes. Neurological: No headache. Allergies: Coded Allergies: ketorolac (Verified Allergy, Mild, NAUSEA/VOMITING, 04/08/18) gabapentin (Verified Allergy, Unknown, 04/08/18) naproxen (Verified Allergy, Unknown, 04/08/18) meperidine (Verified Adverse Reaction, Mild, VOMITING, 04/08/18) Home Meds Active Scripts Promethazine Hcl (PROMETHAZINE HCL) 25 Mg Tablet, 25 MG PO Q6H for Nausea, #20 TAB 0 Refills Prov:LIONEL PARISH MD 04/08/18 Dicyclomine Hcl (DICYCLOMINE HCL) 20 Mg Tablet, 20 MG PO QID, #40 TAB 0 Refills Prov:LIONEL PARISH MD 04/08/18 Discontinued Scripts Ondansetron (ZOFRAN ODT) 4 Mg Tab.rapdis, 4 MG PO Q8H Y for NAUSEA, #20 TAB.EVELYN 0 Refills Prov:LIONEL PARISH MD 04/08/18 Oxycodone Hcl/Acetaminophen (PERCOCET 5-325 MG TABLET) 1 Each Tablet, 1 EACH PO Q4-6H Y for PAIN, #8 Prov:PAULA BURNETT DO 03/13/18 Past Medical/Surgical History Patient has a past medical and surgical history of brain tumor, grand mal seizures, hypertension, COPD, pancreatitis, fractures, back pain, fibromyalgia, 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 Patient has had multiple ED visits for similar complaints of generalized abdominal pain along with nausea and vomiting and multiple CT scans which are either normal or showed only mild colitis. Patient is on the narcotic watch list. Hx Smoking: Yes (1/2ppd) Smoking Status: Current: Every Day Smoker Exposure to Second Hand Smoke?: No Hx Substance Use Disorder: Yes (POT) Hx Alcohol Use: No (quit 5 yrs ago) Constitutional Vital Sign - Last 24 Hours 04/08/18 04/08/18 04/08/18 04/08/18 13:33 13:38 13:39 13:45 Temp 99.9 Pulse ??? 75 Resp 20 B/P (MAP) 189/127 189/127 (147) 189/127 (147) Pulse Ox 95 O2 Delivery Room Air 04/08/18 04/08/18 04/08/18 04/08/18 14:00 14:15 14:18 14:30 Pulse 76 B/P (MAP) 126/112 (117) 177/111 (133) 187/118 (141) Pulse Ox 92 04/08/18 04/08/18 04/08/18 04/08/18 14:33 14:38 14:45 14:53 Pulse 74 76 ??? B/P (MAP) 171/112 (131) Pulse Ox 92 98 96 Physical Exam General Appearance: The patient is alert, has no immediate need for airway protection and no signs of toxicity. Eyes: Pupils equal and round no pallor or injection. ENT, Mouth: Mucous membranes are moist. Respiratory: There are no retractions, lungs are clear to auscultation. Cardiovascular: Regular rate and rhythm. Gastrointestinal: Abdomen is noted for diffuse tenderness without guarding or rebound. Neurological: Awake and alert Skin: Warm and dry, no rashes. Musculoskeletal: Neck is supple non tender. Extremities are nontender, nonswollen and have full range of motion. Medical Decision Making Data Points Result Diagram: 04/08/18 1357 04/08/18 1357 Laboratory Hematology Test 04/08/18 13:38 04/08/18 13:57 Urine Color Yellow Urine Clarity Slightly-cloudy Urine pH 8.0 pH (4.8-9.5) Urine Specific Eure 1.023 Urine Protein 30 mg/dL (NEGATIVE) Urine Glucose (UA) Negative mg/dL (NEGATIVE) Urine Ketones Trace mg/dL (NEGATIVE) Urine Blood Negative (NEGATIVE) Urine Nitrite Negative (NEGATIVE) Urine Bilirubin Small (NEGATIVE) Urine Urobilinogen 2.0 mg/dL (0.2-1.9) Urine Leukocyte Esterase Negative (NEGATIVE) Urine RBC <1 /HPF (0-2/HPF) Urine WBC 1 /HPF (0-5/HPF) Urine Squamous Epithelial Cells Many /LPF (</=FEW) Urine Bacteria Few /HPF (NONE-FEW) Urine Mucus Few /HPF (NONE-FEW) Red Blood Count 5.42 M/uL (4.00-5.60) Mean Corpuscular Volume 91.0 fL (80.0-96.0) Mean Corpuscular Hemoglobin 32.2 pg (26.0-33.0) Mean Corpuscular Hemoglobin Concent 35.4 g/dL (32.0-36.0) Red Cell Distribution Width 14.3 % (11.5-14.5) Mean Platelet Volume 9.0 fL (7.2-11.1) Neutrophils (%) (Auto) 68.5 % (39.4-72.5) Lymphocytes (%) (Auto) 23.6 % (17.6-49.6) Monocytes (%) (Auto) 6.8 % (4.1-12.4) Eosinophils (%) (Auto) 0.4 % (0.4-6.7) Basophils (%) (Auto) 0.7 % (0.3-1.4) Nucleated RBC Relative Count (auto) 0.0 /100WBC Neutrophils # (Auto) 7.5 K/uL (2.0-7.4) Lymphocytes # (Auto) 2.6 K/uL (1.3-3.6) Monocytes # (Auto) 0.7 K/uL (0.3-1.0) Eosinophils # (Auto) 0.0 K/uL (0.0-0.5) Basophils # (Auto) 0.1 K/uL (0.0-0.1) Nucleated RBC Absolute Count (auto) 0.00 K/uL Sodium Level 142 mmol/L (137-145) Potassium Level 3.6 mmol/L (3.5-5.0) Chloride Level 102 mmol/L (98-107) Carbon Dioxide Level 28 mmol/L (22-30) Blood Urea Nitrogen 13 mg/dl (9-21) Creatinine 0.60 mg/dl (0.66-1.25) Glomerular Filtration Rate Calc > 60.0 Random Glucose 111 mg/dl (75-110) Calcium Level 9.8 mg/dl (8.4-10.2) Total Bilirubin 0.7 mg/dl (0.2-1.3) Aspartate Amino Transf (AST/SGOT) 34 U/L (0-35) Alanine Aminotransferase (ALT/SGPT) 27 U/L (0-56) Alkaline Phosphatase 85 U/L (0-126) Total Protein 7.7 g/dl (6.3-8.2) Albumin 4.8 g/dl (3.5-5.0) Lipase 46 U/L (23-300) Helicobacter pylori IgG Antibody Negative (NEGATIVE) Chemistry Test 04/08/18 13:38 04/08/18 13:57 Urine Color Yellow Urine Clarity Slightly-cloudy Urine pH 8.0 pH (4.8-9.5) Urine Specific Eure 1.023 Urine Protein 30 mg/dL (NEGATIVE) Urine Glucose (UA) Negative mg/dL (NEGATIVE) Urine Ketones Trace mg/dL (NEGATIVE) Urine Blood Negative (NEGATIVE) Urine Nitrite Negative (NEGATIVE) Urine Bilirubin Small (NEGATIVE) Urine Urobilinogen 2.0 mg/dL (0.2-1.9) Urine Leukocyte Esterase Negative (NEGATIVE) Urine RBC <1 /HPF (0-2/HPF) Urine WBC 1 /HPF (0-5/HPF) Urine Squamous Epithelial Cells Many /LPF (</=FEW) Urine Bacteria Few /HPF (NONE-FEW) Urine Mucus Few /HPF (NONE-FEW) White Blood Count 10.9 k/uL (4.5-11.0) Red Blood Count 5.42 M/uL (4.00-5.60) Hemoglobin 17.5 g/dL (14.0-18.0) Hematocrit 49.3 % (42.0-52.0) Mean Corpuscular Volume 91.0 fL (80.0-96.0) Mean Corpuscular Hemoglobin 32.2 pg (26.0-33.0) Mean Corpuscular Hemoglobin Concent 35.4 g/dL (32.0-36.0) Red Cell Distribution Width 14.3 % (11.5-14.5) Platelet Count 301 K/uL (150-450) Mean Platelet Volume 9.0 fL (7.2-11.1) Neutrophils (%) (Auto) 68.5 % (39.4-72.5) Lymphocytes (%) (Auto) 23.6 % (17.6-49.6) Monocytes (%) (Auto) 6.8 % (4.1-12.4) Eosinophils (%) (Auto) 0.4 % (0.4-6.7) Basophils (%) (Auto) 0.7 % (0.3-1.4) Nucleated RBC Relative Count (auto) 0.0 /100WBC Neutrophils # (Auto) 7.5 K/uL (2.0-7.4) Lymphocytes # (Auto) 2.6 K/uL (1.3-3.6) Monocytes # (Auto) 0.7 K/uL (0.3-1.0) Eosinophils # (Auto) 0.0 K/uL (0.0-0.5) Basophils # (Auto) 0.1 K/uL (0.0-0.1) Nucleated RBC Absolute Count (auto) 0.00 K/uL Glomerular Filtration Rate Calc > 60.0 Calcium Level 9.8 mg/dl (8.4-10.2) Total Bilirubin 0.7 mg/dl (0.2-1.3) Aspartate Amino Transf (AST/SGOT) 34 U/L (0-35) Alanine Aminotransferase (ALT/SGPT) 27 U/L (0-56) Alkaline Phosphatase 85 U/L (0-126) Total Protein 7.7 g/dl (6.3-8.2) Albumin 4.8 g/dl (3.5-5.0) Lipase 46 U/L (23-300) Helicobacter pylori IgG Antibody Negative (NEGATIVE) Urinalysis Test 04/08/18 13:38 Urine Color Yellow Urine Clarity Slightly-cloudy Urine pH 8.0 pH (4.8-9.5) Urine Specific Eure 1.023 Urine Protein 30 mg/dL (NEGATIVE) Urine Glucose (UA) Negative mg/dL (NEGATIVE) Urine Ketones Trace mg/dL (NEGATIVE) Urine Blood Negative (NEGATIVE) Urine Nitrite Negative (NEGATIVE) Urine Bilirubin Small (NEGATIVE) Urine Urobilinogen 2.0 mg/dL (0.2-1.9) Urine Leukocyte Esterase Negative (NEGATIVE) Urine RBC <1 /HPF (0-2/HPF) Urine WBC 1 /HPF (0-5/HPF) Urine Squamous Epithelial Cells Many /LPF (</=FEW) Urine Bacteria Few /HPF (NONE-FEW) Urine Mucus Few /HPF (NONE-FEW) ED Course/Re-evaluation Clinical Indication for ER IV: Hydration, IV Access ED Course 04/08/2018 2:49:22 pm work is unremarkable. Patient is had multiple visits for similar complaints with multiple CT scans all of which have been negative. We had a long conversation with regard to the need to follow up with general surgery to have a colonoscopy performed. We will discharge the patient on oral dicyclomine and Zofran. He was also recommended to the patient that he follow up for elevated blood pressure. Decision to Disposition Date: Apr 08, 2018 Decision to Disposition Time: 14:49 Depart Departure Latest Vital Signs Vital Signs Date Time Temp Pulse Resp B/P (MAP) Pulse Ox O2 Delivery O2 Flow Rate FiO2 04/08/18 14:53 ??? 96 04/08/18 14:45 171/112 (131) 04/08/18 13:38 99.9 20 Room Air Impression: Primary Impression: Abdominal pain Condition: Improved Referrals: JHON MORENO MD (PCP) 1 Week for evaluation of elevated blood pressure TREE WISEMAN MD Call to schedule an appointment for evaluation of abdominal pain. New Scripts Promethazine Hcl (PROMETHAZINE HCL) 25 Mg Tablet 25 MG PO Q6H for Nausea, #20 TAB 0 Refills Prov: LIONEL PARISH MD 04/08/18 Dicyclomine Hcl (DICYCLOMINE HCL) 20 Mg Tablet 20 MG PO QID, #40 TAB 0 Refills Prov: LIONEL PARISH MD 04/08/18 Patient Instructions: Abdominal Pain (ED) Problem Qualifiers Primary Impression: Abdominal pain Abdominal location: generalized Qualified Codes: R10.84 - Generalized abdominal pain LIONEL PARISH MD Apr 08, 2018 13:38
[2018-04-08] MEDS ORDERED: ONDANSETRON 4 MG/2 ML VIAL ONE (13:54)
[2018-04-08] MEDS ORDERED: ONDANSETRON 4 MG/2 ML VIAL IVP ONE (14:00)
[2018-04-08] MEDS ORDERED: NS(*) 0.9% 1000 ML BAG 1,000 ML IV ONE (14:00)
[2018-04-08] MEDS ORDERED: PANTOPRAZOLE SOD 40 MG IV VIAL IVP ONE (14:00)
[2018-04-08] MEDS ORDERED: ACETAMINOPHEN(*)1000 MG/100 ML 100 ML IVPB ONE (14:00)
[2018-04-08 14:18] LABS: PLATELET COUNT, AUTOMATED 301 K/uL (150-450)
[2018-04-08 14:45] VITALS: BP 171/112
[2018-04-08] MEDS ORDERED: DICYCLOMINE HCL 10 MG CAP PO ONE (14:50)
[2018-04-08] MEDS ORDERED: DICY20TA70 PO (14:53)
[2018-04-08] MEDS ORDERED: ONDA4TAB PO (14:53)
[2018-04-08] MEDS ORDERED: PROM-110 PO (15:01)
== END 2018-04-08 15:09 | disposition home or self-care (01) ==
LOC: ER 13:45
DX: R10.84 Generalized abdominal pain (principal)
CPT/HCPCS: 81001; 83690; 85025; 86677; 96361; 96365; 96375; 99284; A9270; C9113; J0131; J2405; J7030; 82040; 82247; 82310; 82374; 82435; 82565; 82947; 84075; 84132; 84155; 84295; 84450; 84460; 84520

== ENCOUNTER 2018-04-14 12:15 | Emergency (ER) | payer MEDICARE ==
[2016-03-22 11:27] VITALS: Wt 59.0 kg
--- NOTE | 2018-04-14 12:36 | ER Report ---
History and Physical Time Seen By MD: 12:36 Hx. of Stated Complaint: CAN'T PEE, STOMACH HURTS REALLY BAD, BACK HURTS. HPI/ROS CHIEF COMPLAINT: Abdominal pain HISTORY OF PRESENT ILLNESS: 53-year-old male patient presents to emergency room with complaint of abdominal pain. Patient states that he's been having pain significantly for the past several weeks. He states he was seen here just the other day. States that his abdominal pain has gotten worse. He denies having any fevers, chills, nausea, vomiting or diarrhea. Patient states he has appointment to follow-up with a primary care provider in the next week. Patient states that he has been taking medication for nausea, and states he is not been able to vomit. Patient states that he is having a slight bit of diarrhea. Patient states he's able to eat without any difficulties. REVIEW OF SYSTEMS: Respiratory: No cough, no dyspnea. Cardiovascular: No chest pain, no palpitations. Gastrointestinal: As noted above Musculoskeletal: No back pain. Allergies: Coded Allergies: ketorolac (Verified Allergy, Mild, NAUSEA/VOMITING, 04/14/18) gabapentin (Verified Allergy, Unknown, 04/14/18) naproxen (Verified Allergy, Unknown, 04/14/18) meperidine (Verified Adverse Reaction, Mild, VOMITING, 04/14/18) Home Meds Active Scripts Hydrocodone Bit/Acetaminophen (HYDROCODON-ACETAMINOPHEN 5-325) 1 Each Tablet, 1 EACH PO Q4-6H Y for PAIN, #12 TAB Prov:CAPRI MUSE 04/14/18 Promethazine Hcl (PROMETHAZINE HCL) 25 Mg Tablet, 25 MG PO Q6H for Nausea, #20 TAB 0 Refills Prov:LIONEL PARISH MD 04/08/18 Dicyclomine Hcl (DICYCLOMINE HCL) 20 Mg Tablet, 20 MG PO QID, #40 TAB 0 Refills Prov:LIONEL PARISH MD 04/08/18 Discontinued Scripts Ondansetron (ZOFRAN ODT) 4 Mg Tab.rapdis, 4 MG PO Q8H Y for NAUSEA, #20 TAB.EVELYN 0 Refills Prov:LIONEL PARISH MD 04/08/18 Oxycodone Hcl/Acetaminophen (PERCOCET 5-325 MG TABLET) 1 Each Tablet, 1 EACH PO Q4-6H Y for PAIN, #8 Prov:PAULA BURNETT DO 03/13/18 Past Medical/Surgical History Patient has a past medical history of a brain tumor, seizures, hypertension, COPD, calm pancreatitis, fractures, back pain, fibromyalgia, marijuana abuse, alcohol abuse. Patient has surgical history of a brain tumor removed, knee surgery 2. Reviewed Nurses Notes: Yes Hx Smoking: Yes (1/2ppd) Smoking Status: Current: Every Day Smoker Exposure to Second Hand Smoke?: No Hx Substance Use Disorder: Yes (POT) Hx Alcohol Use: No (quit 5 yrs ago) Constitutional Vital Sign - Last 24 Hours 04/14/18 04/14/18 04/14/18 04/14/18 12:15 12:18 12:19 12:30 Temp 98.8 Pulse ??? 67 78 Resp 18 B/P (MAP) 199/129 199/129 (152) 191/126 (147) Pulse Ox 96 94 O2 Delivery Room Air 04/14/18 04/14/18 04/14/18 04/14/18 12:45 12:52 12:57 13:00 Pulse ??? 56 B/P (MAP) 198/130 (152) ???/??? (1665) Pulse Ox 94 04/14/18 04/14/18 04/14/18 04/14/18 13:12 13:27 13:30 13:42 Pulse ? B/P (MAP) 199/116 (143) Intake and Output 04/14/18 04/14/18 04/15/18 14:59 22:59 06:59 Intake Total 1000 ml Balance 1000 ml Physical Exam General Appearance: The patient is alert, has no immediate need for airway protection and no current signs of toxicity. Respiratory: Chest is non tender, lungs are clear to auscultation. Cardiac: regular rate and rhythm Gastrointestinal: Abdomen is soft and non tender, no masses, bowel sounds normal. Musculoskeletal: Neck: Neck is supple and non tender. Extremities have full range of motion and are non tender. Skin: No rashes or lesions. DIFFERENTIAL DIAGNOSIS: After history and physical exam differential diagnosis was considered for abdominal pain including but not limited to appendicitis, cholecystitis, gastritis and urinary tract infection. Medical Decision Making Data Points Result Diagram: 04/14/18 1226 04/14/18 1226 Laboratory Hematology Test 04/14/18 12:26 Red Blood Count 4.89 M/uL (4.00-5.60) Mean Corpuscular Volume 91.2 fL (80.0-96.0) Mean Corpuscular Hemoglobin 32.2 pg (26.0-33.0) Mean Corpuscular Hemoglobin Concent 35.3 g/dL (32.0-36.0) Red Cell Distribution Width 14.0 % (11.5-14.5) Mean Platelet Volume 8.8 fL (7.2-11.1) Neutrophils (%) (Auto) 73.8 % (39.4-72.5) Lymphocytes (%) (Auto) 18.9 % (17.6-49.6) Monocytes (%) (Auto) 5.7 % (4.1-12.4) Eosinophils (%) (Auto) 0.8 % (0.4-6.7) Basophils (%) (Auto) 0.8 % (0.3-1.4) Nucleated RBC Relative Count (auto) 0.1 /100WBC Neutrophils # (Auto) 8.4 K/uL (2.0-7.4) Lymphocytes # (Auto) 2.2 K/uL (1.3-3.6) Monocytes # (Auto) 0.7 K/uL (0.3-1.0) Eosinophils # (Auto) 0.1 K/uL (0.0-0.5) Basophils # (Auto) 0.1 K/uL (0.0-0.1) Nucleated RBC Absolute Count (auto) 0.01 K/uL Sodium Level 138 mmol/L (137-145) Potassium Level 3.8 mmol/L (3.5-5.0) Chloride Level 101 mmol/L (98-107) Carbon Dioxide Level 26 mmol/L (22-30) Blood Urea Nitrogen 14 mg/dl (9-21) Creatinine 0.60 mg/dl (0.66-1.25) Glomerular Filtration Rate Calc > 60.0 Random Glucose 105 mg/dl (75-110) Calcium Level 9.3 mg/dl (8.4-10.2) Total Bilirubin 0.6 mg/dl (0.2-1.3) Aspartate Amino Transf (AST/SGOT) 18 U/L (0-35) Alanine Aminotransferase (ALT/SGPT) 23 U/L (0-56) Alkaline Phosphatase 68 U/L (0-126) Total Protein 7.2 g/dl (6.3-8.2) Albumin 4.6 g/dl (3.5-5.0) Amylase Level 70 U/L (0-110) Lipase 29 U/L (23-300) Chemistry Test 04/14/18 12:26 White Blood Count 11.4 k/uL (4.5-11.0) Red Blood Count 4.89 M/uL (4.00-5.60) Hemoglobin 15.7 g/dL (14.0-18.0) Hematocrit 44.6 % (42.0-52.0) Mean Corpuscular Volume 91.2 fL (80.0-96.0) Mean Corpuscular Hemoglobin 32.2 pg (26.0-33.0) Mean Corpuscular Hemoglobin Concent 35.3 g/dL (32.0-36.0) Red Cell Distribution Width 14.0 % (11.5-14.5) Platelet Count 262 K/uL (150-450) Mean Platelet Volume 8.8 fL (7.2-11.1) Neutrophils (%) (Auto) 73.8 % (39.4-72.5) Lymphocytes (%) (Auto) 18.9 % (17.6-49.6) Monocytes (%) (Auto) 5.7 % (4.1-12.4) Eosinophils (%) (Auto) 0.8 % (0.4-6.7) Basophils (%) (Auto) 0.8 % (0.3-1.4) Nucleated RBC Relative Count (auto) 0.1 /100WBC Neutrophils # (Auto) 8.4 K/uL (2.0-7.4) Lymphocytes # (Auto) 2.2 K/uL (1.3-3.6) Monocytes # (Auto) 0.7 K/uL (0.3-1.0) Eosinophils # (Auto) 0.1 K/uL (0.0-0.5) Basophils # (Auto) 0.1 K/uL (0.0-0.1) Nucleated RBC Absolute Count (auto) 0.01 K/uL Glomerular Filtration Rate Calc > 60.0 Calcium Level 9.3 mg/dl (8.4-10.2) Total Bilirubin 0.6 mg/dl (0.2-1.3) Aspartate Amino Transf (AST/SGOT) 18 U/L (0-35) Alanine Aminotransferase (ALT/SGPT) 23 U/L (0-56) Alkaline Phosphatase 68 U/L (0-126) Total Protein 7.2 g/dl (6.3-8.2) Albumin 4.6 g/dl (3.5-5.0) Amylase Level 70 U/L (0-110) Lipase 29 U/L (23-300) EKG/Imaging Imaging Exam type: ACUTE ABDOMEN SERIES 3 VIEW History: ABD PAIN Comparison: December 15, 2017. Findings: The lungs are free of acute effusions, infiltrates or edema. The cardiac silhouette is normal in size. The trachea is in midline. Supine and upright views of the abdomen demonstrated nonspecific bowel gas pattern. There is no evidence of free air beneath hemidiaphragms. No evidence of organomegaly. There are mild spondylotic changes lower lumbar spine and mild degenerative changes of the hip joints. Sclerotic density over the right femoral head/neck appears unchanged IMPRESSION: 1. Nonspecific bowel gas pattern No evidence of pulmonary consolidation Report Dictated By: Margarita Howard MD at 04/14/2018 1:17 PM Report E-Signed By: Margarita Howard MD at 04/14/2018 1:19 PM ED Course/Re-evaluation ED Course Patient was admitted to an exam room, history and physical were obtained. Differential diagnoses were considered. On examination lungs are clear, heart regular, abdomen was soft and nontender. Patient has been evaluated numerous times here in the emergency room for similar complaints. At this time we will go ahead and check lab work, CBC, CMP, amylase, lipase. Labs were really unremarkable, patient had a white count of 11.3 with a very mild left shift. At this time patient is afebrile, blood pressures were elevated. An acute abdominal x-ray was done which showed nonspecific bowel gas pattern. This time I do not necessarily believe the patient has an infection. I believe that we will have him follow-up with Dr. Madden which scheduled for next . In the meantime we will go ahead and treat the patient with a limited supply of pain medication. He is to follow-up with Dr. Anderson. Patient is return to emergency room if condition worsens. Patient verbalized understanding and agreement with plan. Decision to Disposition Date: Apr 14, 2018 Decision to Disposition Time: 13:49 Depart Departure Latest Vital Signs Vital Signs Date Time Temp Pulse Resp B/P (MAP) Pulse Ox O2 Delivery O2 Flow Rate FiO2 04/14/18 13:42 ??? 04/14/18 13:30 199/116 (143) 04/14/18 12:57 94 04/14/18 12:18 98.8 18 Room Air Impression: Primary Impression: Abdominal pain Condition: Improved Disposition: HOME OR SELF-CARE Referrals: JHON MORENO MD (PCP) New Scripts Hydrocodone Bit/Acetaminophen (HYDROCODON-ACETAMINOPHEN 5-325) 1 Each Tablet 1 EACH PO Q4-6H Y for PAIN, #12 TAB Prov: CAPRI MUSE 04/14/18 Patient Instructions: Abdominal Pain (ED) Additional Instructions: Continue with normal diet. Follow up with Dr. Madden as scheduled. Continue with current medications. Limit activity by pain. Return to the ER if condition worsens. Problem Qualifiers Primary Impression: Abdominal pain Abdominal location: generalized Qualified Codes: R10.84 - Generalized abdominal pain CAPRI MUSE Apr 14, 2018 12:36
[2018-04-14] MEDS ORDERED: NS(*) 0.9% 1000 ML BAG 1,000 ML IV ONE (12:40)
[2018-04-14] MEDS ORDERED: MORPHINE 2 MG/ML SYR IVP ONE (12:40)
[2018-04-14 12:51] LABS: PLATELET COUNT, AUTOMATED 262 K/uL (150-450)
--- NOTE | 2018-04-14 13:23 | RADIOLOGY IMAGING REPORT ---
FACILITY: [facility] PATIENT NAME: Edvin Soliman : 1965 MR: [id number] V: [id number] EXAM DATE: ORDERING PHYSICIAN: CAPRI MUSE TECHNOLOGIST: Location: [facility] - [place] Patient: Edvin Soliman : 1965 Visit/Account:[id number] Date of Sevice: 04/14/2018 Exam type: ACUTE ABDOMEN SERIES 3 VIEW History: ABD PAIN Comparison: December 15, 2017. Findings: The lungs are free of acute effusions, infiltrates or edema. The cardiac silhouette is normal in siz e. The trachea is in midline. Supine and upright views of the abdomen demonstrated nonspecific bowel gas pattern. There is no evid ence of free air beneath hemidiaphragms. No evidence of organomegaly. There are mild spondylotic ch anges lower lumbar spine and mild degenerative changes of the hip joints. Sclerotic density over the right femoral head/neck appears unchanged IMPRESSION: 1. Nonspecific bowel gas pattern No evidence of pulmonary consolidation Report Dictated By: Margarita Howard MD at 04/14/2018 1:17 PM Report E-Signed By: Margarita Howard MD at 04/14/2018 1:19 PM WSN:[place]
[2018-04-14 13:30] VITALS: BP 199/116
[2018-04-14] MEDS ORDERED: APAP/HYDROCODONE 325/5 TAB PO ONE (13:45)
[2018-04-14] MEDS ORDERED: HYDR-385 PO (13:46)
== END 2018-04-14 13:57 | disposition home or self-care (01) ==
LOC: ER 12:23
DX: R10.84 Generalized abdominal pain (principal)
CPT/HCPCS: 74022; 82150; 83690; 85025; 96361; 96374; 99283; A9270; J2270; J7030; 82040; 82247; 82310; 82374; 82435; 82565; 82947; 84075; 84132; 84155; 84295; 84450; 84460; 84520

== ENCOUNTER 2018-06-29 09:05 | Emergency (ER) | payer MEDICARE ==
[2016-03-22 11:27] VITALS: Wt 63.5 kg
[~2018-06-29 09:05] MED LIST changes: +AMLO-111 PO; -AMLO-96 PO; +HYDR-385 PO; -HYDR-4309 PO; +HYDR-653 PO
--- NOTE | 2018-06-29 09:12 | ER Report ---
History and Physical Time Seen By MD: 09:09 HPI/ROS CHIEF COMPLAINT: Nausea, vomiting, chronic abdominal pain HISTORY OF PRESENT ILLNESS: Patient is a 53-year-old male here with complaints of diffuse abdominal pain, nausea, vomiting, diarrhea which is been present since yesterday. Patient reports that his pain is similar to prior episodes of pain and has been ongoing for quite some time. Patient has been seen by a gastroenterology specialist [place] last week and was reportedly told that he may have Crohn's disease. Patient reports not taking any pain medications at home and has run out of his nausea medications. Last meal was yesterday. Patient was found to be hypertensive at time of evaluation, afebrile, otherwise hemodynamically stable. Denies hematuria, melena, or blood per rectum. REVIEW OF SYSTEMS: Constitutional: No fever, + chills. Eyes: No discharge. ENT: No sore throat. Cardiovascular: No chest pain, no palpitations. Respiratory: No cough, no shortness of breath. Gastrointestinal: + diffuse crampy abdominal pain, + nausea and vomiting. Genitourinary: No hematuria. Musculoskeletal: No back pain. Skin: No rashes. Neurological: No headache. Allergies: Coded Allergies: ketorolac (Verified Allergy, Mild, NAUSEA/VOMITING, 04/14/18) gabapentin (Verified Allergy, Unknown, 04/14/18) naproxen (Verified Allergy, Unknown, 04/14/18) meperidine (Verified Adverse Reaction, Mild, VOMITING, 04/14/18) Home Meds Active Scripts Promethazine Hcl (PROMETHAZINE HCL) 25 Mg Tablet, 25 MG PO Q8H, #20 TAB Prov:FINA CANALES DO 06/29/18 Tramadol Hcl (TRAMADOL HCL) 50 Mg Tablet, 50 MG PO Q6H PRN for PAIN, #12 TAB 0 Refills Prov:FINA CANALES DO 06/29/18 Discontinued Scripts Hydrocodone Bit/Acetaminophen (HYDROCODON-ACETAMINOPHEN 5-325) 1 Each Tablet, 1 EACH PO Q4-6H PRN for PAIN, #12 TAB Prov:CAPRI MUSE 04/14/18 Promethazine Hcl (PROMETHAZINE HCL) 25 Mg Tablet, 25 MG PO Q6H for Nausea, #20 TAB 0 Refills Prov:LIONEL PARISH MD 04/08/18 Dicyclomine Hcl (DICYCLOMINE HCL) 20 Mg Tablet, 20 MG PO QID, #40 TAB 0 Refills Prov:LIONEL PARISH MD 04/08/18 Hx Smoking: Yes (1/2ppd) Smoking Status: Current: Every Day Smoker Exposure to Second Hand Smoke?: No Hx Substance Use Disorder: Yes (POT) Hx Alcohol Use: No (quit 5 yrs ago) Constitutional Vital Sign - Last 24 Hours 06/29/18 06/29/18 06/29/18 06/29/18 09:08 09:10 09:40 09:45 Pulse 66 62 Resp 20 B/P (MAP) 199/119 193/119 (143) 167/116 (133) Pulse Ox 96 95 O2 Delivery Room Air 06/29/18 06/29/18 06/29/18 10:00 10:30 10:58 B/P (MAP) 155/101 (119) 176/125 (142) 182/117 (138) Physical Exam General Appearance: The patient is alert, has no immediate need for airway protection and no signs of toxicity. Eyes: Pupils equal and round no pallor or injection. ENT, Mouth: Mucous membranes are moist. Respiratory: There are no retractions, lungs are clear to auscultation. Cardiovascular: Regular rate and rhythm. Gastrointestinal: Abdomen is soft and + diffusely tender with no rebound or gua rding, no masses, bowel sounds normal. Neurological: No focal neuro deficits Skin: Warm and dry, no rashes. Musculoskeletal: Neck is supple non tender. Extremities are nontender, nonswollen and have full range of motion. DIFFERENTIAL DIAGNOSIS: After history and physical exam differential diagnosis was considered for abdominal pain including but not limited to appendicitis, cholecystitis, gastritis and urinary tract infection, dehydration, electrolyte abnormality Medical Decision Making Data Points Result Diagram: 06/29/1892606/29/18926 Laboratory Hematology Test 06/29/18 09:27 06/29/18 10:17 Red Blood Count 5.18 M/uL (4.00-5.60) Mean Corpuscular Volume 93.2 fL (80.0-96.0) Mean Corpuscular Hemoglobin 31.9 pg (26.0-33.0) Mean Corpuscular Hemoglobin Concent 34.2 g/dL (32.0-36.0) Red Cell Distribution Width 14.4 % (11.5-14.5) Mean Platelet Volume 8.7 fL (7.2-11.1) Neutrophils (%) (Auto) 81.2 % (39.4-72.5) Lymphocytes (%) (Auto) 14.7 % (17.6-49.6) Monocytes (%) (Auto) 3.7 % (4.1-12.4) Eosinophils (%) (Auto) 0.0 % (0.4-6.7) Basophils (%) (Auto) 0.4 % (0.3-1.4) Nucleated RBC Relative Count (auto) 0.0 /100WBC Neutrophils # (Auto) 7.5 K/uL (2.0-7.4) Lymphocytes # (Auto) 1.4 K/uL (1.3-3.6) Monocytes # (Auto) 0.3 K/uL (0.3-1.0) Eosinophils # (Auto) 0.0 K/uL (0.0-0.5) Basophils # (Auto) 0.0 K/uL (0.0-0.1) Nucleated RBC Absolute Count (auto) 0.00 K/uL Erythrocyte Sedimentation Rate 10 mm/HOUR (0-20) Prothrombin Time 12.3 seconds (12.0-14.4) Prothromb Time International Ratio 0.92 Activated Partial Thromboplast Time 33 seconds (23-35) Sodium Level 138 mmol/L (137-145) Potassium Level 3.8 mmol/L (3.5-5.0) Chloride Level 102 mmol/L (98-107) Carbon Dioxide Level 26 mmol/L (22-30) Blood Urea Nitrogen 14 mg/dl (9-21) Creatinine 0.50 mg/dl (0.66-1.25) Glomerular Filtration Rate Calc > 60.0 Random Glucose 126 mg/dl (75-110) Calcium Level 9.6 mg/dl (8.4-10.2) Total Bilirubin 0.6 mg/dl (0.2-1.3) Aspartate Amino Transf (AST/SGOT) 24 U/L (0-35) Alanine Aminotransferase (ALT/SGPT) 25 U/L (0-56) Alkaline Phosphatase 70 U/L (0-126) C-Reactive Protein 0.7 mg/dl (<1.0) Total Protein 7.4 g/dl (6.3-8.2) Albumin 4.4 g/dl (3.5-5.0) Lipase 18 U/L (23-300) Urine Color Yellow Urine Clarity Slightly-cloudy Urine pH 6.0 pH (4.8-9.5) Urine Specific [place] 1.021 Urine Protein Negative mg/dL (NEGATIVE) Urine Glucose (UA) Negative mg/dL (NEGATIVE) Urine Ketones Negative mg/dL (NEGATIVE) Urine Blood Negative (NEGATIVE) Urine Nitrite Negative (NEGATIVE) Urine Bilirubin Negative (NEGATIVE) Urine Urobilinogen Negative mg/dL (0.2-1.9) Urine Leukocyte Esterase Negative (NEGATIVE) Urine RBC <1 /HPF (0-2/HPF) Urine WBC 1 /HPF (0-5/HPF) Urine Squamous Epithelial Cells None /LPF (</=FEW) Urine Bacteria Negative /HPF (NONE-FEW) Urine Mucus Few /HPF (NONE-FEW) Chemistry Test 06/29/18 09:27 06/29/18 10:17 White Blood Count 9.2 k/uL (4.5-11.0) Red Blood Count 5.18 M/uL (4.00-5.60) Hemoglobin 16.5 g/dL (14.0-18.0) Hematocrit 48.3 % (42.0-52.0) Mean Corpuscular Volume 93.2 fL (80.0-96.0) Mean Corpuscular Hemoglobin 31.9 pg (26.0-33.0) Mean Corpuscular Hemoglobin Concent 34.2 g/dL (32.0-36.0) Red Cell Distribution Width 14.4 % (11.5-14.5) Platelet Count 249 K/uL (150-450) Mean Platelet Volume 8.7 fL (7.2-11.1) Neutrophils (%) (Auto) 81.2 % (39.4-72.5) Lymphocytes (%) (Auto) 14.7 % (17.6-49.6) Monocytes (%) (Auto) 3.7 % (4.1-12.4) Eosinophils (%) (Auto) 0.0 % (0.4-6.7) Basophils (%) (Auto) 0.4 % (0.3-1.4) Nucleated RBC Relative Count (auto) 0.0 /100WBC Neutrophils # (Auto) 7.5 K/uL (2.0-7.4) Lymphocytes # (Auto) 1.4 K/uL (1.3-3.6) Monocytes # (Auto) 0.3 K/uL (0.3-1.0) Eosinophils # (Auto) 0.0 K/uL (0.0-0.5) Basophils # (Auto) 0.0 K/uL (0.0-0.1) Nucleated RBC Absolute Count (auto) 0.00 K/uL Erythrocyte Sedimentation Rate 10 mm/HOUR (0-20) Prothrombin Time 12.3 seconds (12.0-14.4) Prothromb Time International Ratio 0.92 Activated Partial Thromboplast Time 33 seconds (23-35) Glomerular Filtration Rate Calc > 60.0 Calcium Level 9.6 mg/dl (8.4-10.2) Total Bilirubin 0.6 mg/dl (0.2-1.3) Aspartate Amino Transf (AST/SGOT) 24 U/L (0-35) Alanine Aminotransferase (ALT/SGPT) 25 U/L (0-56) Alkaline Phosphatase 70 U/L (0-126) C-Reactive Protein 0.7 mg/dl (<1.0) Total Protein 7.4 g/dl (6.3-8.2) Albumin 4.4 g/dl (3.5-5.0) Lipase 18 U/L (23-300) Urine Color Yellow Urine Clarity Slightly-cloudy Urine pH 6.0 pH (4.8-9.5) Urine Specific [place] 1.021 Urine Protein Negative mg/dL (NEGATIVE) Urine Glucose (UA) Negative mg/dL (NEGATIVE) Urine Ketones Negative mg/dL (NEGATIVE) Urine Blood Negative (NEGATIVE) Urine Nitrite Negative (NEGATIVE) Urine Bilirubin Negative (NEGATIVE) Urine Urobilinogen Negative mg/dL (0.2-1.9) Urine Leukocyte Esterase Negative (NEGATIVE) Urine RBC <1 /HPF (0-2/HPF) Urine WBC 1 /HPF (0-5/HPF) Urine Squamous Epithelial Cells None /LPF (</=FEW) Urine Bacteria Negative /HPF (NONE-FEW) Urine Mucus Few /HPF (NONE-FEW) Coagulation Test 06/29/18 09:27 Prothrombin Time 12.3 seconds Prothromb Time International Ratio 0.92 Activated Partial Thromboplast Time 33 seconds Urinalysis Test 06/29/18 10:17 Urine Color Yellow Urine Clarity Slightly-cloudy Urine pH 6.0 pH (4.8-9.5) Urine Specific [place] 1.021 Urine Protein Negative mg/dL (NEGATIVE) Urine Glucose (UA) Negative mg/dL (NEGATIVE) Urine Ketones Negative mg/dL (NEGATIVE) Urine Blood Negative (NEGATIVE) Urine Nitrite Negative (NEGATIVE) Urine Bilirubin Negative (NEGATIVE) Urine Urobilinogen Negative mg/dL (0.2-1.9) Urine Leukocyte Esterase Negative (NEGATIVE) Urine RBC <1 /HPF (0-2/HPF) Urine WBC 1 /HPF (0-5/HPF) Urine Squamous Epithelial Cells None /LPF (</=FEW) Urine Bacteria Negative /HPF (NONE-FEW) Urine Mucus Few /HPF (NONE-FEW) ED Course/Re-evaluation ED Course Patient is a 53-year-old male here with complaints of chronic diffuse cramping abdominal pains, diarrhea, nausea, vomiting which started yesterday. Patient reportedly was seen by gastroenterology specialist in [place] last week and was told that he has possible Crohn's. Labs were collected including inflammatory markers, CBC, CMP, lipase and a urinalysis to rule out any acute process. Abdomen was soft, diffusely tender with no rebound or guarding or distention. Patient is passing loose bowel movements and in the setting of an unremarkable abdominal exam, obstruction is unlikely. Patient was given IV fluids for hydration, Reglan, fentanyl and Tylenol through the IV. Patient was also given a dose of Phenergan IV, tramadol. Labs were unremarkable, inflammatory markers were not elevated. Since this pain is similar to the patient's chronic pain condition, a repeat imaging was indicated at this time. Patient was given scripts for Phenergan and advised to take Tylenol for primary pain control and tramadol as needed for breakthrough pain control. Decision to Disposition Date: Jun 29, 2018 Decision to Disposition Time: 10:56 Depart Departure Latest Vital Signs Vital Signs Date Time Temp Pulse Resp B/P (MAP) Pulse Ox O2 Delivery O2 Flow Rate FiO2 06/29/18 10:58 182/117 (138) 06/29/18 09:45 62 95 06/29/18 09:08 20 Room Air Impression: Primary Impression: Abdominal pain Additional Impressions: Diarrhea Nausea & vomiting Condition: Improved Disposition: HOME OR SELF-CARE Referrals: JHON MORENO MD (PCP) New Scripts Promethazine Hcl (PROMETHAZINE HCL) 25 Mg Tablet 25 MG PO Q8H, #20 TAB Prov: CANALESFINA 06/29/18 Tramadol Hcl (TRAMADOL HCL) 50 Mg Tablet 50 MG PO Q6H PRN for PAIN, #12 TAB 0 Refills Prov: FINA CANALES DO 06/29/18 Patient Instructions: Abdominal Pain (ED) Additional Instructions: You may take 1 tablet of Phenergan every 8 hours as needed for nausea and vomiting. Please drink plenty of water. You may take up to 1 tablet of tramadol every 8 hours as needed for breakthrough pain control. Please take Tylenol for her primary pain control over the counter. Do not exceed 3 g of Tylenol per day. Please follow-up with her family doctor as scheduled. Please keep all scheduled appointments. Please return if you develop fevers, worsening pain, inability to keep down food or fluids, blood in the stools or urine. Problem Qualifiers FINA CANALES DO Jun 29, 2018 09:12
[2018-06-29] MEDS ORDERED: NS(*) 0.9% 1000 ML BAG 1,000 ML IV ONE (09:19)
[2018-06-29] MEDS ORDERED: fentaNYL CITR 100 MCG/2 ML AMP IVP ONE ×2 (09:20→09:35)
[2018-06-29] MEDS ORDERED: METOCLOPRAMIDE 10 MG/2 ML SDV IVP ONE (09:20)
[2018-06-29] MEDS ORDERED: ACETAMINOPHEN 500 MG TAB PO ONE (09:25)
[2018-06-29] MEDS ORDERED: ACETAMINOPHEN(*)1000 MG/100 ML 100 ML IVPB ONE (09:35)
[2018-06-29 09:39] LABS: PLATELET COUNT, AUTOMATED 249 K/uL (150-450)
[2018-06-29 09:44] LABS: INR 0.92
[2018-06-29] MEDS ORDERED: PROMETHAZINE 50 MG/ML 1 ML AMP IVP ONE (10:35)
[2018-06-29] MEDS ORDERED: traMADol 50 MG TAB PO ONE (10:50)
[2018-06-29] MEDS ORDERED: TRAM-420 PO (10:53)
[2018-06-29] MEDS ORDERED: PROM-110 PO (10:53)
[2018-06-29] MEDS ORDERED: PROMETHAZINE 25 MG/ML 1 ML AMP IVP ONE (10:55)
[2018-06-29 10:58] VITALS: BP 182/117
== END 2018-06-29 11:17 | disposition home or self-care (01) ==
LOC: ER 09:42
DX: R11.2 Nausea with vomiting, unspecified (principal); R10.84 Generalized abdominal pain; R19.7 Diarrhea, unspecified
CPT/HCPCS: 81001; 83690; 85025; 85610; 85651; 85730; 86140; 96374; 96375; 99284; A9270; J0131; J2550; J2765; J3010; J7030; 82040; 82247; 82310; 82374; 82435; 82565; 82947; 84075; 84132; 84155; 84295; 84450; 84460; 84520

== ENCOUNTER 2018-07-01 05:50 | Emergency (ER) | payer MEDICARE ==
[2016-03-22 11:27] VITALS: BMI 19.7
[2018-07-01] MEDS ORDERED: NS(*) 0.9% 1000 ML BAG 1,000 ML IV ONE (06:09)
--- NOTE | 2018-07-01 06:09 | ER Report ---
History and Physical Time Seen By MD: 06:02 Hx. of Stated Complaint: pain started around 0100; states that "it feels like someone punched me in stomach"; pain is a 10/10 and is "all over" stated by the patient HPI/ROS CHIEF COMPLAINT: Acute on chronic abdominal pain HISTORY OF PRESENT ILLNESS: Patient is a 53-year-old male who has been seen multiple times in the emergency department for episodes of abdominal pain. Diony lutz has had multiple imaging studies including CT scans and blood work which always had returned normal. Patient states that his symptoms began around 1 AM this morning is having crampy abdominal pain that is diffuse. Associated with nausea and vomiting. He denies diarrhea, but admits to having some loose stools. He denies fevers but admits to some chills. Patient was recently seen on June 29 similar complaints. At that time was unremarkable. Patient was treated with Tylenol, Phenergan which seemed to improve symptoms. Patient has been referred for surgical evaluation and endoscopy multiple times but patient has not made these appointments. He states that he is a disabled and doesn't drive so he has difficult time getting around. Patient states that symptoms are similar to prior exacerbations of abdominal pain. Last meal was yesterday. Patient states he tried some soup but soon after he developed the abdominal pain as well as nausea and vomiting. Patient patient is on the narcotic watch list. Denies any alcohol or illicit drug use. REVIEW OF SYSTEMS: Constitutional: No fever, no chills. Eyes: No discharge. ENT: No sore throat. Cardiovascular: No chest pain, no palpitations. Respiratory: No cough, no shortness of breath. Gastrointestinal: Abdominal pain, nausea, vomiting, loose stools Genitourinary: No hematuria. Musculoskeletal: No back pain. Skin: No rashes. Neurological: No headache. Allergies: Coded Allergies: ketorolac (Verified Allergy, Mild, NAUSEA/VOMITING, 04/14/18) gabapentin (Verified Allergy, Unknown, 04/14/18) naproxen (Verified Allergy, Unknown, 04/14/18) meperidine (Verified Adverse Reaction, Mild, VOMITING, 04/14/18) Home Meds Active Scripts Promethazine Hcl (PROMETHAZINE HCL) 25 Mg Tablet, 25 MG PO Q6H for Nausea, #20 TAB 0 Refills Prov:LIONEL PARISH MD 07/01/18 Dicyclomine Hcl (DICYCLOMINE HCL) 20 Mg Tablet, 20 MG PO QID, #20 TAB 0 Refills Prov:LIONEL PARISH MD 07/01/18 Promethazine Hcl (PROMETHAZINE HCL) 25 Mg Tablet, 25 MG PO Q8H, #20 TAB Prov:CANALESTUANFINA S DO 06/29/18 Tramadol Hcl (TRAMADOL HCL) 50 Mg Tablet, 50 MG PO Q6H PRN for PAIN, #12 TAB 0 Refills Prov:FINA CANALES DO 06/29/18 Discontinued Scripts Hydrocodone Bit/Acetaminophen (HYDROCODON-ACETAMINOPHEN 5-325) 1 Each Tablet, 1 EACH PO Q4-6H PRN for PAIN, #12 TAB Prov:CAPRI MUSE 04/14/18 Promethazine Hcl (PROMETHAZINE HCL) 25 Mg Tablet, 25 MG PO Q6H for Nausea, #20 TAB 0 Refills Prov:LIONEL PARISH MD 04/08/18 Dicyclomine Hcl (DICYCLOMINE HCL) 20 Mg Tablet, 20 MG PO QID, #40 TAB 0 Refills Prov:LIONEL PARISH MD 04/08/18 Past Medical/Surgical History Untreated hypertension, recurrent abdominal pain Hx Smoking: Yes (1/2ppd) Smoking Status: Current: Every Day Smoker Exposure to Second Hand Smoke?: No Hx Substance Use Disorder: Yes (POT) Hx Alcohol Use: No (quit 5 yrs ago) Constitutional Vital Sign - Last 24 Hours 07/01/18 07/01/18 07/01/18 07/01/18 05:52 05:53 06:00 06:30 Temp 98.7 Pulse 76 Resp 17 B/P (MAP) 181/121 (141) 181/121 170/121 (137) 152/95 (114) Pulse Ox 95 O2 Delivery Room Air 07/01/18 07:00 B/P (MAP) 157/104 (121) Physical Exam General/Constitutional: Patient is awake, alert, nontoxic and in no acute respiratory distress. Head: Normocephalic and atraumatic. Eyes: Conjunctival clear, Sclera are clear and anicteric. Oropharyngeal: Mucous membranes are moist. There is no pharyngeal erythema or exudate. There are no palatal petechiae. Uvula is midline and symmetrical. Neck: Supple, no adenopathy. Cardiovascular: Heart is regular rate and rhythm without audible murmurs, rubs or gallops. Pulmonary: Lungs are clear to auscultation bilaterally. There are no wheezes, rales, or rhonchi. Chest rise is symmetrical Abdomen: Abdomen is soft and diffusely tender no guarding or rebound tenderness elicited Extremities: No gross deformities, No peripheral cyanosis. Able to move all 4 extremities. Neuro: Alert and oriented X3, Kathleen. Skin: No rashes, skin is warm dry and well perfused. Medical Decision Making Data Points Result Diagram: 07/01/18 0546 07/01/18 0546 Laboratory Hematology Test 07/01/18 05:46 07/01/18 08:20 Red Blood Count 5.18 M/uL (4.00-5.60) Mean Corpuscular Volume 93.3 fL (80.0-96.0) Mean Corpuscular Hemoglobin 31.7 pg (26.0-33.0) Mean Corpuscular Hemoglobin Concent 34.0 g/dL (32.0-36.0) Red Cell Distribution Width 14.5 % (11.5-14.5) Mean Platelet Volume 9.0 fL (7.2-11.1) Neutrophils (%) (Auto) 77.8 % (39.4-72.5) Lymphocytes (%) (Auto) 16.4 % (17.6-49.6) Monocytes (%) (Auto) 4.6 % (4.1-12.4) Eosinophils (%) (Auto) 0.7 % (0.4-6.7) Basophils (%) (Auto) 0.5 % (0.3-1.4) Nucleated RBC Relative Count (auto) 0.0 /100WBC Neutrophils # (Auto) 10.8 K/uL (2.0-7.4) Lymphocytes # (Auto) 2.3 K/uL (1.3-3.6) Monocytes # (Auto) 0.6 K/uL (0.3-1.0) Eosinophils # (Auto) 0.1 K/uL (0.0-0.5) Basophils # (Auto) 0.1 K/uL (0.0-0.1) Nucleated RBC Absolute Count (auto) 0.00 K/uL Sodium Level 138 mmol/L (137-145) Potassium Level 3.6 mmol/L (3.5-5.0) Chloride Level 100 mmol/L (98-107) Carbon Dioxide Level 26 mmol/L (22-30) Blood Urea Nitrogen 22 mg/dl (9-21) Creatinine 0.70 mg/dl (0.66-1.25) Glomerular Filtration Rate Calc > 60.0 Random Glucose 124 mg/dl (75-110) Calcium Level 9.3 mg/dl (8.4-10.2) Total Bilirubin 0.3 mg/dl (0.2-1.3) Aspartate Amino Transf (AST/SGOT) 19 U/L (0-35) Alanine Aminotransferase (ALT/SGPT) 26 U/L (0-56) Alkaline Phosphatase 65 U/L (0-126) C-Reactive Protein < 0.5 mg/dl (<1.0) Total Protein 7.1 g/dl (6.3-8.2) Albumin 4.2 g/dl (3.5-5.0) Lipase 33 U/L (23-300) Helicobacter pylori IgG Antibody Negative (NEGATIVE) Urine Color Yellow Urine Clarity Clear Urine pH 6.0 pH (4.8-9.5) Urine Specific [place] 1.033 Urine Protein Negative mg/dL (NEGATIVE) Urine Glucose (UA) Negative mg/dL (NEGATIVE) Urine Ketones Negative mg/dL (NEGATIVE) Urine Blood Small (NEGATIVE) Urine Nitrite Negative (NEGATIVE) Urine Bilirubin Negative (NEGATIVE) Urine Urobilinogen Negative mg/dL (0.2-1.9) Urine Leukocyte Esterase Negative (NEGATIVE) Urine RBC <1 /HPF (0-2/HPF) Urine WBC <1 /HPF (0-5/HPF) Urine Squamous Epithelial Cells None /LPF (</=FEW) Urine Bacteria Negative /HPF (NONE-FEW) Urine Mucus Few /HPF (NONE-FEW) Chemistry Test 07/01/18 05:46 07/01/18 08:20 White Blood Count 13.9 k/uL (4.5-11.0) Red Blood Count 5.18 M/uL (4.00-5.60) Hemoglobin 16.4 g/dL (14.0-18.0) Hematocrit 48.3 % (42.0-52.0) Mean Corpuscular Volume 93.3 fL (80.0-96.0) Mean Corpuscular Hemoglobin 31.7 pg (26.0-33.0) Mean Corpuscular Hemoglobin Concent 34.0 g/dL (32.0-36.0) Red Cell Distribution Width 14.5 % (11.5-14.5) Platelet Count 276 K/uL (150-450) Mean Platelet Volume 9.0 fL (7.2-11.1) Neutrophils (%) (Auto) 77.8 % (39.4-72.5) Lymphocytes (%) (Auto) 16.4 % (17.6-49.6) Monocytes (%) (Auto) 4.6 % (4.1-12.4) Eosinophils (%) (Auto) 0.7 % (0.4-6.7) Basophils (%) (Auto) 0.5 % (0.3-1.4) Nucleated RBC Relative Count (auto) 0.0 /100WBC Neutrophils # (Auto) 10.8 K/uL (2.0-7.4) Lymphocytes # (Auto) 2.3 K/uL (1.3-3.6) Monocytes # (Auto) 0.6 K/uL (0.3-1.0) Eosinophils # (Auto) 0.1 K/uL (0.0-0.5) Basophils # (Auto) 0.1 K/uL (0.0-0.1) Nucleated RBC Absolute Count (auto) 0.00 K/uL Glomerular Filtration Rate Calc > 60.0 Calcium Level 9.3 mg/dl (8.4-10.2) Total Bilirubin 0.3 mg/dl (0.2-1.3) Aspartate Amino Transf (AST/SGOT) 19 U/L (0-35) Alanine Aminotransferase (ALT/SGPT) 26 U/L (0-56) Alkaline Phosphatase 65 U/L (0-126) C-Reactive Protein < 0.5 mg/dl (<1.0) Total Protein 7.1 g/dl (6.3-8.2) Albumin 4.2 g/dl (3.5-5.0) Lipase 33 U/L (23-300) Helicobacter pylori IgG Antibody Negative (NEGATIVE) Urine Color Yellow Urine Clarity Clear Urine pH 6.0 pH (4.8-9.5) Urine Specific [place] 1.033 Urine Protein Negative mg/dL (NEGATIVE) Urine Glucose (UA) Negative mg/dL (NEGATIVE) Urine Ketones Negative mg/dL (NEGATIVE) Urine Blood Small (NEGATIVE) Urine Nitrite Negative (NEGATIVE) Urine Bilirubin Negative (NEGATIVE) Urine Urobilinogen Negative mg/dL (0.2-1.9) Urine Leukocyte Esterase Negative (NEGATIVE) Urine RBC <1 /HPF (0-2/HPF) Urine WBC <1 /HPF (0-5/HPF) Urine Squamous Epithelial Cells None /LPF (</=FEW) Urine Bacteria Negative /HPF (NONE-FEW) Urine Mucus Few /HPF (NONE-FEW) Urinalysis Test 07/01/18 08:20 Urine Color Yellow Urine Clarity Clear Urine pH 6.0 pH (4.8-9.5) Urine Specific [place] 1.033 Urine Protein Negative mg/dL (NEGATIVE) Urine Glucose (UA) Negative mg/dL (NEGATIVE) Urine Ketones Negative mg/dL (NEGATIVE) Urine Blood Small (NEGATIVE) Urine Nitrite Negative (NEGATIVE) Urine Bilirubin Negative (NEGATIVE) Urine Urobilinogen Negative mg/dL (0.2-1.9) Urine Leukocyte Esterase Negative (NEGATIVE) Urine RBC <1 /HPF (0-2/HPF) Urine WBC <1 /HPF (0-5/HPF) Urine Squamous Epithelial Cells None /LPF (</=FEW) Urine Bacteria Negative /HPF (NONE-FEW) Urine Mucus Few /HPF (NONE-FEW) EKG/Imaging Imaging FACILITY: [facility] PATIENT NAME: Edvin Soliman : 1965 MR: [id number] V: [id number] EXAM DATE: ORDERING PHYSICIAN: LIONEL PARISH TECHNOLOGIST: Location: [facility] - [place] Patient: Edvin Soliman : 1965 Visit/Account:[id number] Date of Sevice: 07/01/2018 ABDOMEN/PELVIS WITH CONTRAST COMPARISON: October 21, 2017. HISTORY: Vomiting and abdominal pain. TECHNIQUE: Axial CT abdomen and pelvis with intravenous contrast. Coronal and sagittal reformats. One of the following dose optimization techniques was utilized in the performance of this exam: automated exposure control; adjustment of the mA and/or kV according to patient size; or use of iterative reconstruction technique. Specific details can be referenced in the facility's radiology CT exam operational policy. CONTRAST: 75 mL of IV Isovue-370. FINDINGS: LUNG BASES: Unremarkable. LIVER: Too small to characterize hypodense lesion in the right lobe inferiorly, probable cyst, stable. The right lobe is elongated. BILIARY: Unremarkable gallbladder. No intra-or extrahepatic bile duct dilatation. SPLEEN: Normal. PANCREAS: Unremarkable. No significant mass, ductal dilatation or focal atrophy. No evidence of acute pancreatitis. ADRENALS: Unremarkable. KIDNEYS: There is a 4 mm characterize probable cyst in the right mid kidney anteriorly which is stable. No new lesions. No evidence of pyelonephritis or obstruction. 1 mm nonobstructive stone, left mid kidney anteriorly series 3 image 113, and 2 mm nonobstructive stone at the left lower pole on image 136. No obstructive stones are seen. GI/MESENTERY: There is moderate stool in the sigmoid colon and mild stool in the rectum which also contains gas. No localized inflammatory change, free air or free fluid. No visible mass, obstruction, or bowel wall thickening. The appendix is not identified. There is no pericecal inflammation. VASCULAR: Moderate aortoiliac calcifications, no significant stenosis. LYMPH NODES: Unremarkable. No significantly enlarged lymph nodes. BLADDER: Unremarkable. No visible focal wall thickening, appreciable lesion, o r calculus. PELVIC ORGANS: Unremarkable. Pelvic organs are within normal limits for age. BONES: Unremarkable.No acute-appearing fracture or suspicious osseous lesion. OTHER: Negative. IMPRESSION: 1. No acute bowel pathology or specific cause for symptoms. 2. Small nonobstructive stones in the left kidney. Report Dictated By: Xavier Richardson at 07/01/2018 8:01 AM Report E-Signed By: Xavier Richardson at 07/01/2018 8:08 AM WSN:[id number] ED Course/Re-evaluation Clinical Indication for ER IV: IV Access ED Course 07/01/2018 6:07:53 am with similar presentation of chronic abdominal pain. Patient has had multiple CT scans which have returned to normal or mild colitis. Plan at this time will be to perform abdominal workup with lab work including CBC CMP and lipase H pylori testing. We'll also consider a C-reactive protein. I would like to avoid any additional imaging due to radiation exposure. However if lab work is nonreassuring we'll consider imaging tests. 07/01/2018 7:00:36 am patient with white count of 13.9. Review of the electronic medical record shows a baseline white blood count between 9 and 10. Given this elevation in white blood cell count elbow perform CT scan of the abdomen and pelvis 07/01/2018 7:37:42 am Patient returns from CT scan; still complaining of discomfort. Patient noticed by nursing staff that he is putting his fingers down his throat to induce emesis. Plan at this time will be 5 mg of IV Haldol for use for chronic pain as well as anti-emesis. Awaiting results of CT scan 07/01/2018 8:21:25 am feeling improved at this time CT scan is unremarkable for acute bowel pathology. I stressed the importance of follow-up with a primary care provider as well as with general surgery for a colonoscopy. Patient states he understands we will discharge him with prescriptions for Phenergan and Bentyl Decision to Disposition Date: Jul 01, 2018 Decision to Disposition Time: 07:00 Depart Departure Latest Vital Signs Vital Signs Date Time Temp Pulse Resp B/P (MAP) Pulse Ox O2 Delivery O2 Flow Rate FiO2 07/01/18 07:00 157/104 (121) 07/01/18 05:53 98.7 76 17 95 Room Air Impression: Primary Impression: Abdominal pain Additional Impression: Nausea & vomiting Condition: Improved Disposition: HOME OR SELF-CARE Referrals: JHON MORENO MD (PCP) Call to schedule a follow-up appointment as soon as possible TREE WISEMAN MD Call to make an appointment as soon as possible for colonoscopy New Scripts Promethazine Hcl (PROMETHAZINE HCL) 25 Mg Tablet 25 MG PO Q6H for Nausea, #20 TAB 0 Refills Prov: LIONEL PARISH MD 07/01/18 Dicyclomine Hcl (DICYCLOMINE HCL) 20 Mg Tablet 20 MG PO QID, #20 TAB 0 Refills Prov: LIONEL PARISH MD 07/01/18 Patient Instructions: Abdominal Pain (ED), Acute Nausea and Vomiting (GEN) Problem Qualifiers Primary Impression: Abdominal pain Abdominal location: generalized Qualified Codes: R10.84 - Generalized abdominal pain Additional Impression: Nausea & vomiting Vomiting type: unspecified Vomiting Intractability: unspecified Qualified Codes: R11.2 - Nausea with vomiting, unspecified LIONEL PARISH MD Jul 01, 2018 06:09
[2018-07-01] MEDS ORDERED: DICYCLOMINE HCL 10 MG CAP PO ONE (06:10)
[2018-07-01] MEDS ORDERED: PROMETHAZINE 25 MG/ML 1 ML AMP IVP ONE (06:10)
[2018-07-01 06:19] LABS: PLATELET COUNT, AUTOMATED 276 K/uL (150-450)
[2018-07-01 07:00] VITALS: BP 157/104
[2018-07-01] MEDS ORDERED: IOPAMIDOL 76% 75 ML INFUS BTL 75 ML ONE (07:26)
[2018-07-01] MEDS ORDERED: HALOPERIDOL LACT 5 MG/ML VIAL IM ONE (07:40)
--- NOTE | 2018-07-01 08:13 | RADIOLOGY IMAGING REPORT ---
FACILITY: [facility] - [place] PATIENT NAME: Edvin Soliman : 1965 MR: [id number] V: [id number] EXAM DATE: ORDERING PHYSICIAN: LIONEL PARISH TECHNOLOGIST: Location: [facility] - [place] Patient: Edvin Soliman : 1965 Visit/Account:[id number] Date of Sevice: 07/01/2018 ABDOMEN/PELVIS WITH CONTRAST COMPARISON: October 21, 2017. HISTORY: Vomiting and abdominal pain. TECHNIQUE: Axial CT abdomen and pelvis with intravenous contrast. Coronal and sagittal reformats. One of the following dose optimization techniques was utilized in the performance of this exam: aut omated exposure control; adjustment of the mA and/or kV according to patient size; or use of iterativ e reconstruction technique. Specific details can be referenced in the facility's radiology CT exam o perational policy. CONTRAST: 75 mL of IV Isovue-370. FINDINGS: LUNG BASES: Unremarkable. LIVER: Too small to characterize hypodense lesion in the right lobe inferiorly, probable cyst, stabl e. The right lobe is elongated. BILIARY: Unremarkable gallbladder. No intra-or extrahepatic bile duct dilatat ion. SPLEEN: Normal. PANCREAS: Unremarkable. No significant mass, ductal dilatation or focal atrophy. No evidence of ac ashley pancreatitis. ADRENALS: Unremarkable. KIDNEYS: There is a 4 mm characterize probable cyst in the right mid kidney anteriorly which is stab le. No new lesions. No evidence of pyelonephritis or obstruction. 1 mm nonobstructive stone, left mid kidney anteriorly series 3 image 113, and 2 mm nonobstructive stone at the left lower pole on image 136. No obstructive stones are seen. GI/MESENTERY: There is moderate stool in the sigmoid colon and mild stool in the rectum which also c ontains gas. No localized inflammatory change, free air or free fluid. No visible mass, obstruction , or bowel wall thickening. The appendix is not identified. There is no pericecal inflammation. VASCULAR: Moderate aortoiliac calcifications, no significant stenosis. LYMPH NODES: Unremarkable. No significantly enlarged lymph nodes. BLADDER: Unremarkable. No visible focal wall thickening, appreciable lesion, or calculus. PELVIC ORGANS: Unremarkable. Pelvic organs are within normal limits for age. BONES: Unremarkable.No acute-appearing fracture or suspicious osseous lesion. OTHER: Negative. IMPRESSION: 1. No acute bowel pathology or specific cause for symptoms. 2. Small nonobstructive stones in the left kidney. Report Dictated By: Xavier Richardson at 07/01/2018 8:01 AM Report E-Signed By: Xavier Richardson at 07/01/2018 8:08 AM WSN:[id number]
[2018-07-01] MEDS ORDERED: DICY20TA70 PO (08:23)
[2018-07-01] MEDS ORDERED: PROM-110 PO (08:23)
== END 2018-07-01 08:34 | disposition home or self-care (01) ==
LOC: ER 06:00
DX: R10.84 Generalized abdominal pain (principal); R11.2 Nausea with vomiting, unspecified
CPT/HCPCS: 74177; 81001; 83690; 85025; 86140; 86677; 96361; 96372; 96374; 99284; A9270; J1630; J2550; J7030; Q9967; 82040; 82247; 82310; 82374; 82435; 82565; 82947; 84075; 84132; 84155; 84295; 84450; 84460; 84520

== ENCOUNTER → 2018-07-01 | Outpatient (CLI) | payer MEDICARE ==
[2016-03-22 11:27] VITALS: BMI 19.7
[~2018-07-01] MED LIST changes: +TRAM-420 PO
== END ==
LOC: AMB 05:37
PROVIDERS: ATTEND Nurse Practitioner
DX: R10.84 Generalized abdominal pain (principal); K59.00 Constipation, unspecified
CPT/HCPCS: A0425; A0427